=== PATIENT | male | born 1970 | race Caucasian/White ===

== ENCOUNTER 2019-09-01 18:30 | Emergency (ER) | payer MEDICAID ==
[~2019-09-01] VITALS: Ht 172.7 cm; Wt 88.6 kg
[~2019-09-01 18:30] MED LIST: AZIT250T PO; HYDR-4383 PO
[2019-09-01 19:23] LABS: BASOPHILS % (AUTO) 0.4 % (0-1); EOSINOPHILS # (AUTO) 0.2 X10'3 (0-0.9); EOSINOPHILS % (AUTO) 1.7 % (0-6); HEMATOCRIT 44.1 % (42.0-52.0); HEMOGLOBIN 15.3 g/dl (14.0-17.9); LYMPHOCYTES % (AUTO) 18.7 % (21-51); MEAN CORPUSCULAR HGB CONC 34.6 g/dL (33.0-36.5); MEAN CORPUSCULAR VOLUME 92.4 FL (78-98); MEAN PLATELET VOLUME 7.3 FL (7.4-10.4); MONOCYTES # (AUTO) 1.2 X10'3 (0-0.9); MONOCYTES % (AUTO) 10.9 % (2-12); NEUTROPHILS # (AUTO) 7.3 X10'3 (1.8-7.7); NEUTROPHILS % (AUTO) 68.3 % (42-75); PLATELET COUNT 310 X10'3 (140-440); RED BLOOD COUNT 4.78 X10'6 (4.70-6.10); RED CELL DISTRIBUTION WIDTH 13.3 % (11.5-14.5); WHITE BLOOD COUNT 10.7 X10'3 (4.5-11.0)
[2019-09-01 19:38] LABS: ALANINE AMINOTRANSFERASE 46 U/L (12-78); ALBUMIN/GLOBULIN RATIO 0.9 (1.1-1.5); ALKALINE PHOSPHATASE 70 IU/L (46-116); ANION GAP 10 (8-16); ASPARTATE AMINO TRANSFERASE 41 U/L (10-37); BILIRUBIN,TOTAL 0.4 MG/DL (0.1-1.0); BLOOD UREA NITROGEN 19 MG/DL (7-18); BUN/CREATININE RATIO 18.8 (5.4-32.0); CHLORIDE 105 MMOL/L (99-107); CREATININE 1.01 MG/DL (0.60-1.10); GLUCOSE 90 MG/DL (70-104); POTASSIUM 3.8 MMOL/L (3.5-5.1); SODIUM 140 MMOL/L (135-145); TOTAL CARBON DIOXIDE 24.6 MMOL/L (24-32); TOTAL PROTEIN 8.4 G/DL (6.4-8.2); eGFR 78 ML/MIN
[2019-09-01] MEDS ORDERED: methylPREDNISolone sod succ 125mg/2ml vial IV ONE (20:20)
[2019-09-01] MEDS ORDERED: normal saline 1000ML IV soln IVB ONE (20:20)
[2019-09-01] MEDS ORDERED: ipratropium/albuterol 3ml nebule NEB ONE (20:20)
[2019-09-01] MEDS ORDERED: CefTRIAXone 2gm/D5W 50ml 50 ML IV ONE (20:20)
[2019-09-01] MEDS ORDERED: BENZ-16 PO (20:21)
[2019-09-01] MEDS ORDERED: ALBU6.7H9 INH (20:21)
[2019-09-01] MEDS ORDERED: AMOX-422 PO (20:21)
[2019-09-01] MEDS ORDERED: PRED20TA PO (20:21)
[2019-09-01 21:30] VITALS: BP 149/90
== END 2019-09-01 21:31 | disposition home or self-care (01) ==
LOC: ER 18:31
DX: J32.9 Chronic sinusitis, unspecified (principal); J06.9 Acute upper respiratory infection, unspecified; G89.29 Other chronic pain; F17.200 Nicotine dependence, unspecified, uncomplicated; Z86.73 Personal history of transient ischemic attack (TIA), and cerebral infarction without residual deficits; Z79.899 Other long term (current) drug therapy
CPT/HCPCS: 36415; 71045; 80053; 83605; 85025; 87040; 93005; 94640; 94760; 96365; 96375; 99284; J0696; J2930; J7030

== ENCOUNTER 2020-03-09 05:27 | Emergency (ER) | payer MEDICAID ==
[~2020-03-09] VITALS: Ht 172.7 cm; Wt 90.0 kg
[~2020-03-09 05:27] MED LIST changes: +ALBU6.7H9 INH
[2020-03-09 05:29] VITALS: BP 151/94
== END 2020-03-09 06:33 | disposition home or self-care (01) ==
LOC: ER 05:28
DX: S70.02XA Contusion of left hip, initial encounter (principal); S70.12XA Contusion of left thigh, initial encounter; G89.29 Other chronic pain; F17.200 Nicotine dependence, unspecified, uncomplicated; Z86.73 Personal history of transient ischemic attack (TIA), and cerebral infarction without residual deficits; Z72.89 Other problems related to lifestyle; Z79.899 Other long term (current) drug therapy; V29.49XA Motorcycle driver injured in collision with other motor vehicles in traffic accident, initial encounter; Y93.89 Activity, other specified; Y92.488 Other paved roadways as the place of occurrence of the external cause; Y99.8 Other external cause status
CPT/HCPCS: 73502; 99283

== ENCOUNTER 2020-06-23 18:33 | Emergency (ER) | payer MEDICAID | END 2020-06-23 19:31 | disposition left against medical advice (07) | LOC: ER 18:34 | DX: S99.919A Unspecified injury of unspecified ankle, initial encounter (principal); Z53.21 Procedure and treatment not carried out due to patient leaving prior to being seen by health care provider; X58.XXXA Exposure to other specified factors, initial encounter; Y92.89 Other specified places as the place of occurrence of the external cause; Y93.89 Activity, other specified; Y99.8 Other external cause status ==

== ENCOUNTER 2022-07-15 08:29 | Emergency (ER) | payer MEDICAID ==
[~2022-07-15] VITALS: Ht 172.7 cm; Wt 90.9 kg
[2022-07-15 09:28] LABS: BASOPHILS # (AUTO) 0.1 X10'3 (0-0.2); BASOPHILS % (AUTO) 1.4 % (0-1); EOSINOPHILS # (AUTO) 0.1 X10'3 (0-0.9); HEMATOCRIT 47.6 % (42.0-52.0); HEMOGLOBIN 16.1 g/dl (14.0-17.9); LYMPHOCYTES # (AUTO) 1.9 X10'3 (1.1-4.8); LYMPHOCYTES % (AUTO) 28.7 % (21-51); MEAN CORPUSCULAR HEMOGLOBIN 31.3 PG (27.0-31.0); MEAN CORPUSCULAR HGB CONC 33.8 g/dL (33.0-36.5); MEAN CORPUSCULAR VOLUME 92.5 FL (78-98); MEAN PLATELET VOLUME 7.6 FL (7.4-10.4); MONOCYTES # (AUTO) 0.6 X10'3 (0-0.9); NEUTROPHILS # (AUTO) 3.8 X10'3 (1.8-7.7); NEUTROPHILS % (AUTO) 58.9 % (42-75); PLATELET COUNT 307 X10'3 (140-440); RED BLOOD COUNT 5.14 X10'6 (4.70-6.10); RED CELL DISTRIBUTION WIDTH 13.8 % (11.5-14.5); WHITE BLOOD COUNT 6.5 X10'3 (4.5-11.0)
[2022-07-15 09:33] LABS: APTT 32 SECONDS (22-32)
[2022-07-15 09:36] LABS: ALANINE AMINOTRANSFERASE 49 U/L (12-78); ALBUMIN 4.1 G/DL (3.4-5.0); ALBUMIN/GLOBULIN RATIO 1.1 (1.1-1.5); ALKALINE PHOSPHATASE 53 IU/L (46-116); ANION GAP 10 (8-16); ASPARTATE AMINO TRANSFERASE 22 U/L (10-37); BILIRUBIN,TOTAL 0.7 MG/DL (0.1-1.0); BLOOD UREA NITROGEN 22 MG/DL (7-18); CALCIUM 8.8 MG/DL (8.5-10.1); CHLORIDE 103 MMOL/L (99-107); GLUCOSE 113 MG/DL (70-104); POTASSIUM 4.2 MMOL/L (3.5-5.1); SODIUM 136 MMOL/L (135-145); TOTAL CARBON DIOXIDE 23.3 MMOL/L (24-32); eGFR 78 ML/MIN
[2022-07-15] MEDS ORDERED: iohexol 350MG/ML 100ml bottle IV ONE (12:06)
[2022-07-15] MEDS ORDERED: LOSA25TA41 PO (13:53)
[2022-07-15 14:20] VITALS: BP 175/103
== END 2022-07-15 14:08 | disposition home or self-care (01) ==
LOC: ER 08:30
DX: R51.9 Headache, unspecified (principal); I10 Essential (primary) hypertension; G89.29 Other chronic pain
CPT/HCPCS: 36415; 70496; 70498; 80053; 85025; 85610; 85730; 99285; J3490; Q9967

== ENCOUNTER 2023-01-17 13:41 | Inpatient (IN) | payer MEDICAID ==
[~2023-01-17] VITALS: Ht 172.7 cm; Wt 86.4 kg
[~2023-01-17 13:41] MED LIST changes: +ALBU6.7H14 INH; -ALBU6.7H9 INH; +LOSA25TA41 PO
[2023-01-17] MEDS ORDERED: iohexol 350MG/ML 100ml bottle IV ONE (14:05)
[2023-01-17 14:49] LABS: BASOPHILS # (AUTO) 0.1 X10'3 (0-0.2); BASOPHILS % (AUTO) 0.6 % (0-1); EOSINOPHILS # (AUTO) 0.1 X10'3 (0-0.9); EOSINOPHILS % (AUTO) 0.7 % (0-6); HEMATOCRIT 42.6 % (42.0-52.0); HEMOGLOBIN 14.3 g/dl (14.0-17.9); LYMPHOCYTES # (AUTO) 1.6 X10'3 (1.1-4.8); LYMPHOCYTES % (AUTO) 17.4 % (21-51); MEAN CORPUSCULAR HEMOGLOBIN 31.7 PG (27.0-31.0); MEAN CORPUSCULAR HGB CONC 33.6 g/dL (33.0-36.5); MEAN CORPUSCULAR VOLUME 94.2 FL (78-98); MEAN PLATELET VOLUME 7.7 FL (7.4-10.4); MONOCYTES # (AUTO) 0.5 X10'3 (0-0.9); MONOCYTES % (AUTO) 5.8 % (2-12); NEUTROPHILS # (AUTO) 7.1 X10'3 (1.8-7.7); NEUTROPHILS % (AUTO) 75.5 % (42-75); PLATELET COUNT 288 X10'3 (140-440); RED BLOOD COUNT 4.53 X10'6 (4.70-6.10); RED CELL DISTRIBUTION WIDTH 13.4 % (11.5-14.5); WHITE BLOOD COUNT 9.4 X10'3 (4.5-11.0)
[2023-01-17] MEDS ORDERED: aspirin 81mg tab.chew PO ONE (14:50)
--- NOTE | 2023-01-17 14:51 | NUR ---
Success A new connect request was successfully created for: LYMANJASON : 1970 ConnectID: [id number] REASON: Code Stroke TLKW 4.5 to 24 hours ACUITY: Acuity Level 2 SUBMITTED: 01/17/2023 14:51 PST
--- NOTE | 2023-01-17 14:52 | NUR ---
blood sugar 110 mg/dl . pt back from ct. ekg completed. vss. Addendum: 01/17/23 at 1453 by SYD tele doc on and talking to pt.
[2023-01-17 15:01] LABS: APTT 30 SECONDS (22-32)
[2023-01-17 15:02] LABS: ALANINE AMINOTRANSFERASE 27 U/L (12-78); ALBUMIN 3.7 G/DL (3.4-5.0); ALBUMIN/GLOBULIN RATIO 1.2 (1.1-1.5); ALKALINE PHOSPHATASE 57 IU/L (46-116); ANION GAP 8 (8-16); ASPARTATE AMINO TRANSFERASE 16 U/L (10-37); BILIRUBIN,TOTAL 0.2 MG/DL (0.1-1.0); BLOOD UREA NITROGEN 23 MG/DL (7-18); BUN/CREATININE RATIO 25.6 (5.4-32.0); CALCIUM 8.8 MG/DL (8.5-10.1); CHLORIDE 106 MMOL/L (99-107); GLUCOSE 113 MG/DL (70-104); SODIUM 139 MMOL/L (135-145); TOTAL CARBON DIOXIDE 25.5 MMOL/L (24-32); TOTAL PROTEIN 6.9 G/DL (6.4-8.2); eGFR 88 ML/MIN
--- NOTE | 2023-01-17 15:14 | NUR ---
pt passed swallow eval at approx 1509. no s/s aspiration
[2023-01-17] MEDS ORDERED: BACL10TA14 (15:35)
[2023-01-17] MEDS ORDERED: DOBUTamine-DoBUTrex 500mg/D5W 250 ML IV SCH (16:20)
[2023-01-17] MEDS ORDERED: magnesium Cl slow-release 64mg tablet PO PRN (16:35)
[2023-01-17] MEDS ORDERED: normal saline 1000ml 1,000 ML IV SCH (16:35)
[2023-01-17] MEDS ORDERED: HYDROcodone/acetaminophen 5mg/325mg tablet PO PRN (16:35)
[2023-01-17] MEDS ORDERED: morphine 2 MG/ML inj. syringe IV PRN (16:35)
[2023-01-17] MEDS ORDERED: magnesium 4gm in 100ml NS 100 ML IV PRN (16:35)
[2023-01-17] MEDS ORDERED: acetaminophen 325mg tablet PO PRN ×2 (16:35)
[2023-01-17] MEDS ORDERED: potassium Cl 40MEQ/1/2NS 520ml 520 ML IV PRN (16:35)
[2023-01-17] MEDS ORDERED: potassium Cl 20 mEq SR tablet PO PRN ×2 (16:35)
[2023-01-17] MEDS ORDERED: ondansetron/PF 4mg/2ml inj IV PRN (16:35)
[2023-01-17] MEDS ORDERED: BACL10TA2 PO (17:05)
[2023-01-17] MEDS ORDERED: LOSA25TA41 PO (17:05)
[2023-01-17] MEDS ORDERED: GABA300C PO (17:06)
[2023-01-17] MEDS ORDERED: MELO-102 PO (17:06)
[2023-01-17] MEDS ORDERED: IBUP-1984 PO (17:07)
[2023-01-17] MEDS: K and/or MAG REPLACEMENT MC SCH (20:00)
[2023-01-17 21:00] VITALS: BP 151/81
[2023-01-17] MEDS: heparin, porcine 5000 units/ml vial SQ SCH (21:59)
--- NOTE | 2023-01-17 23:31 | NUR ---
Student documentation: I have reviewed interventions, assessments performed and documented by Kassy SILVA [facility], [place].
[2023-01-18 02:00] VITALS: BP 142/81
[2023-01-18 04:42] LABS: BASOPHILS % (AUTO) 0.3 % (0-1); EOSINOPHILS # (AUTO) 0.2 X10'3 (0-0.9); EOSINOPHILS % (AUTO) 2.7 % (0-6); HEMATOCRIT 41.4 % (42.0-52.0); LYMPHOCYTES # (AUTO) 2.7 X10'3 (1.1-4.8); LYMPHOCYTES % (AUTO) 32.3 % (21-51); MEAN CORPUSCULAR HEMOGLOBIN 31.9 PG (27.0-31.0); MEAN CORPUSCULAR HGB CONC 33.8 g/dL (33.0-36.5); MEAN CORPUSCULAR VOLUME 94.3 FL (78-98); MEAN PLATELET VOLUME 7.9 FL (7.4-10.4); MONOCYTES # (AUTO) 0.7 X10'3 (0-0.9); MONOCYTES % (AUTO) 7.8 % (2-12); NEUTROPHILS # (AUTO) 4.8 X10'3 (1.8-7.7); NEUTROPHILS % (AUTO) 56.9 % (42-75); PLATELET COUNT 277 X10'3 (140-440); RED BLOOD COUNT 4.39 X10'6 (4.70-6.10); RED CELL DISTRIBUTION WIDTH 13.7 % (11.5-14.5); WHITE BLOOD COUNT 8.4 X10'3 (4.5-11.0)
[2023-01-18 04:59] LABS: ALANINE AMINOTRANSFERASE 25 U/L (12-78); ALBUMIN 3.6 G/DL (3.4-5.0); ALBUMIN/GLOBULIN RATIO 1.2 (1.1-1.5); ALKALINE PHOSPHATASE 52 IU/L (46-116); ANION GAP 10 (8-16); ASPARTATE AMINO TRANSFERASE 16 U/L (10-37); BILIRUBIN,TOTAL 0.5 MG/DL (0.1-1.0); BLOOD UREA NITROGEN 24 MG/DL (7-18); BUN/CREATININE RATIO 28.2 (5.4-32.0); CALCIUM 8.7 MG/DL (8.5-10.1); CHLORIDE 106 MMOL/L (99-107); CREATININE 0.85 MG/DL (0.60-1.10); GLUCOSE 92 MG/DL (70-104); POTASSIUM 3.9 MMOL/L (3.5-5.1); SODIUM 141 MMOL/L (135-145); TOTAL CARBON DIOXIDE 24.6 MMOL/L (24-32); TOTAL PROTEIN 6.7 G/DL (6.4-8.2); eGFR > 90 ML/MIN
[2023-01-18 05:24] LABS: CHOL/HDL RATIO 4.3 (0.00-4.99); CHOLESTEROL 221 MG/DL (0-200); HDL CHOLESTEROL 52 MG/DL (35-60); LDL CHOLESTEROL 133 MG/DL (50-100); TRIGLYCERIDES 247 MG/DL (20-135)
--- NOTE | 2023-01-18 06:29 | NUR ---
Problems reprioritized. Patient report given, questions answered & plan of care reviewed with SUSI WILSON.
[2023-01-18 08:00] VITALS: BP 126/75
[2023-01-18] MEDS: K and/or MAG REPLACEMENT MC SCH (08:00)
[2023-01-18] MEDS ORDERED: aspirin 81mg, enteric-coated 1 TAB TABLET.DR PO SCH (08:00)
[2023-01-18] MEDS: heparin, porcine 5000 units/ml vial SQ SCH (08:00)
--- NOTE | 2023-01-18 10:24 | NUR ---
PAGER ID: [phone] MESSAGE: [id number] Isidro, B: patient would like to discharge home. all symptoms have resolved. thanks! regis [phone]
[2023-01-18] MEDS ORDERED: ATOR20TA66 PO (10:48)
[2023-01-18] MEDS ORDERED: BACL10TA2 PO (10:48)
[2023-01-18] MEDS ORDERED: OMEP20CA15 PO (10:48)
[2023-01-18] MEDS ORDERED: ASPI-1071 PO (10:48)
--- NOTE | 2023-01-18 11:32 | NUR ---
Patient stable and appropriate for discharge home. IV and nursing technician removed. All belongings gathered from room. New RX called in to [facility] pharmacy in [place]. All discharge instructions and education given and reviewed with patient, all questions answered.
== END 2023-01-18 11:28 | disposition home or self-care (01) | DRG 47 ==
LOC: ER 13:41 → ED HOLD 16:40 → UNDOADMIN 16:49 → ED HOLD 16:49 → SUR 3N 21:00 → ED HOLD 21:00
PROVIDERS: ADMIT Internal Medicine; ATTEND Internal Medicine
PROC: B3251ZZ Computerized Tomography (CT Scan) of Bilateral Common Carotid Arteries using Low Osmolar Contrast (ICD-10-PCS; principal; 2023-01-17)
PROC: B32G1ZZ Computerized Tomography (CT Scan) of Bilateral Vertebral Arteries using Low Osmolar Contrast (ICD-10-PCS; 2023-01-17)
PROC: B32R1ZZ Computerized Tomography (CT Scan) of Intracranial Arteries using Low Osmolar Contrast (ICD-10-PCS; 2023-01-17)
PROC: B3281ZZ Computerized Tomography (CT Scan) of Bilateral Internal Carotid Arteries using Low Osmolar Contrast (ICD-10-PCS; 2023-01-17)
DX: G45.9 Transient cerebral ischemic attack, unspecified (principal); E78.00 Pure hypercholesterolemia, unspecified; E78.5 Hyperlipidemia, unspecified; G51.0 Bell's palsy; R51.9 Headache, unspecified; G89.29 Other chronic pain; I10 Essential (primary) hypertension; K21.00 Gastro-esophageal reflux disease with esophagitis, without bleeding; R13.10 Dysphagia, unspecified; Z79.82 Long term (current) use of aspirin; Z86.73 Personal history of transient ischemic attack (TIA), and cerebral infarction without residual deficits; Z79.899 Other long term (current) drug therapy
CPT/HCPCS: 36415; 70450; 70496; 70498; 70544; 70551; 71045; 80053; 80061; 82948; 85025; 85610; 85651; 85730; 87081; 93005; 97161; 97530; 99285; A6258; G0378; J1644; J3490; J7030; Q9967

== ENCOUNTER 2023-06-21 18:12 | Inpatient (IN) | payer MEDICAID, SELFPAY ==
[~2023-06-21] VITALS: Ht 172.7 cm; Wt 90.0 kg
[~2023-06-21 18:12] MED LIST changes: -ALBU6.7H14 INH; +ASPI-1071 PO; +ATOR20TA66 PO; -AZIT250T PO; +BACL10TA2 PO; +GABA300C PO; -HYDR-4383 PO; +OMEP20CA15 PO
--- NOTE | 2023-06-21 18:30 | NUR ---
at bedside completing ultrasound assessment.
[2023-06-21] MEDS ORDERED: ondansetron/PF 4mg/2ml inj IV ONE (18:40)
[2023-06-21] MEDS ORDERED: morphine 10mg/ml inj. IV ONE (18:40)
[2023-06-21] MEDS ORDERED: iohexol 350MG/ML 100ml bottle IV ONE (18:46)
[2023-06-21] MEDS ORDERED: iohexol 300 MG/1 ML 50ml polymer ONE ×2 (18:51→22:21)
[2023-06-21 19:02] LABS: BASOPHILS % (AUTO) 0.2 % (0-1); EOSINOPHILS # (AUTO) 0.1 X10'3 (0-0.9); EOSINOPHILS % (AUTO) 0.6 % (0-6); HEMATOCRIT 42.4 % (42.0-52.0); HEMOGLOBIN 14.1 g/dl (14.0-17.9); LYMPHOCYTES # (AUTO) 3.5 X10'3 (1.1-4.8); LYMPHOCYTES % (AUTO) 18.3 % (21-51); MEAN CORPUSCULAR HEMOGLOBIN 31.4 PG (27.0-31.0); MEAN CORPUSCULAR HGB CONC 33.3 g/dL (33.0-36.5); MEAN CORPUSCULAR VOLUME 94.4 FL (78-98); MEAN PLATELET VOLUME 8.1 FL (7.4-10.4); MONOCYTES # (AUTO) 1.3 X10'3 (0-0.9); MONOCYTES % (AUTO) 6.6 % (2-12); NEUTROPHILS # (AUTO) 14.3 X10'3 (1.8-7.7); NEUTROPHILS % (AUTO) 74.3 % (42-75); PLATELET COUNT 287 X10'3 (140-440); RED CELL DISTRIBUTION WIDTH 13.4 % (11.5-14.5); WHITE BLOOD COUNT 19.3 X10'3 (4.5-11.0)
--- NOTE | 2023-06-21 19:04 | NUR ---
LATE NOTE FOR [address] SCAN
[2023-06-21 19:16] LABS: APTT 26 SECONDS (22-32)
[2023-06-21 19:19] LABS: ALANINE AMINOTRANSFERASE 43 U/L (12-78); ALBUMIN 4.2 G/DL (3.4-5.0); ALBUMIN/GLOBULIN RATIO 1.2 (1.1-1.5); ALKALINE PHOSPHATASE 55 IU/L (46-116); ANION GAP 18 (8-16); ASPARTATE AMINO TRANSFERASE 37 U/L (10-37); BILIRUBIN,TOTAL 0.4 MG/DL (0.1-1.0); BLOOD UREA NITROGEN 21 MG/DL (7-18); BUN/CREATININE RATIO 16.8 (10.0-20.0); CALCIUM 9.5 MG/DL (8.5-10.1); CHLORIDE 103 MMOL/L (99-107); CREATININE 1.25 MG/DL (0.60-1.10); GLUCOSE 112 MG/DL (70-104); POTASSIUM 3.7 MMOL/L (3.5-5.1); SODIUM 141 MMOL/L (135-145); TOTAL CARBON DIOXIDE 20.5 MMOL/L (24-32); TOTAL PROTEIN 7.7 G/DL (6.4-8.2); eGFR 60 ML/MIN
--- NOTE | 2023-06-21 19:21 | NUR ---
PT BACK FROM CT COMPALINING OF SEVERE PAIN UNABLE TO FEEL LIGHT TOUCH TO LEFT FOOT BUT ABLE TO FEEL SHARP, DR HARRIS NOTIFIED AND TO [facility] FOR RE-EVALUATION.
[2023-06-21] MEDS ORDERED: HYDROmorphone 1 mg/ml syringe IV ONE ×2 (19:25→20:10)
[2023-06-21] MEDS: normal saline 1000ml 1,000 ML IV SCH (20:24)
[2023-06-21] MEDS: ceFAZolin/D5W- 1GM premix 50 ML IV SCH (20:29)
[2023-06-21] MEDS ORDERED: heparin 10,000 units/1 ML INJ ONE (20:49)
[2023-06-21] MEDS ORDERED: midazolam 1 mg/ML 2ml injection ONE (21:05)
[2023-06-21] MEDS ORDERED: propofol inj 20 ML IV ONE (21:06)
[2023-06-21] MEDS ORDERED: fentaNYL /PF 50mcg/ml 5ml ampule ONE (21:06)
[2023-06-21] MEDS ORDERED: sevoflurane 250ml liquid IH ONE (21:43)
[2023-06-21] MEDS ORDERED: glycopyrrolate 0.2mg/ml inj ONE (21:43)
[2023-06-21] MEDS ORDERED: ondansetron/PF 4mg/2ml inj ONE (21:43)
[2023-06-21] MEDS ORDERED: neostigmine methylsulfate 1 MG/ML 10ml vial ONE (21:43)
[2023-06-21] MEDS ORDERED: NORepinephrine 8 MG in NS 250 ML BAG (32 mcg/ml) IV ONE (21:43)
[2023-06-21] MEDS ORDERED: rocuronium 10mg/ml inj IV ONE ×2 (21:43→22:24)
[2023-06-21] MEDS ORDERED: ceFAZolin 1000mg inj ONE ×2 (22:15)
[2023-06-21] MEDS ORDERED: dexamethasone sod phosphate 4mg/ml inj. ONE (22:24)
[2023-06-21] MEDS ORDERED: heparin 1,000unit/ml 10ml vial 10 ML ONE (22:58)
[2023-06-21] MEDS ORDERED: vancomycin 1,000mg inj ONE (23:20)
[2023-06-22] VITALS (28 sets, daily range): BP systolic 101–153; BP diastolic 45–88; PULSE 93–115; RESP 13–41; O2SAT 88–99
[2023-06-22] MEDS ORDERED: naloxone 0.4 mg/ml inj IV PRN (01:05)
[2023-06-22] MEDS ORDERED: ringers solution, lacted 1,000 ML IV SCH (01:20)
[2023-06-22] MEDS ORDERED: ondansetron/PF 4mg/2ml inj IV PRN (01:20)
[2023-06-22] MEDS ORDERED: meperidine/PF 25mg/ml syringe IV PRN ×3 (01:20)
[2023-06-22] MEDS ORDERED: morphine 4 MG/ML inj SYRINge IV PRN (01:20)
[2023-06-22] MEDS ORDERED: morphine 2 MG/ML inj. syringe IV PRN (01:20)
[2023-06-22] MEDS ORDERED: proCHLORperazine 10 MG/2 ml inj IV PRN (01:20)
[2023-06-22 01:49] LABS: APTT > 139 SECONDS (22-32)
[2023-06-22 02:22] LABS: BASOPHILS % (AUTO) 0.2 % (0-1); EOSINOPHILS % (AUTO) 0 % (0-6); HEMATOCRIT 28.5 % (42.0-52.0); HEMOGLOBIN 9.5 g/dl (14.0-17.9); LYMPHOCYTES # (AUTO) 1.1 X10'3 (1.1-4.8); LYMPHOCYTES % (AUTO) 5.3 % (21-51); MEAN CORPUSCULAR HEMOGLOBIN 31.8 PG (27.0-31.0); MEAN CORPUSCULAR HGB CONC 33.5 g/dL (33.0-36.5); MEAN CORPUSCULAR VOLUME 94.9 FL (78-98); MEAN PLATELET VOLUME 8.3 FL (7.4-10.4); MONOCYTES # (AUTO) 1.5 X10'3 (0-0.9); MONOCYTES % (AUTO) 7.5 % (2-12); NEUTROPHILS # (AUTO) 17.3 X10'3 (1.8-7.7); PLATELET COUNT 231 X10'3 (140-440); RED CELL DISTRIBUTION WIDTH 13.4 % (11.5-14.5); WHITE BLOOD COUNT 19.9 X10'3 (4.5-11.0)
[2023-06-22 02:30] LABS: ALANINE AMINOTRANSFERASE 29 U/L (12-78); ALBUMIN 3.1 G/DL (3.4-5.0); ALBUMIN/GLOBULIN RATIO 1.2 (1.1-1.5); ALKALINE PHOSPHATASE 37 IU/L (46-116); ANION GAP 13 (8-16); ASPARTATE AMINO TRANSFERASE 32 U/L (10-37); BILIRUBIN,TOTAL 0.6 MG/DL (0.1-1.0); BLOOD UREA NITROGEN 23 MG/DL (7-18); BUN/CREATININE RATIO 18.1 (10.0-20.0); CALCIUM 7.8 MG/DL (8.5-10.1); CHLORIDE 108 MMOL/L (99-107); CREATININE 1.27 MG/DL (0.60-1.10); GLUCOSE 199 MG/DL (70-104); MAGNESIUM 1.8 MG/DL (1.5-2.4); PHOSPHORUS 4.7 MG/DL (2.3-4.5); POTASSIUM 4.9 MMOL/L (3.5-5.1); SODIUM 141 MMOL/L (135-145); TOTAL PROTEIN 5.6 G/DL (6.4-8.2); eGFR 59 ML/MIN
[2023-06-22] MEDS: HYDROmorphone inj. 0.5 MG/0.5 ML DISP.SYRIN IV PRN ×5 (02:33→20:08)
[2023-06-22] MEDS: normal saline 1000ml 1,000 ML IV SCH ×3 (02:34→12:21)
[2023-06-22] MEDS: ceFAZolin/D5W- 1GM premix 50 ML IV SCH (04:27)
[2023-06-22] MEDS: HYDROcodone/acetaminophen 10/325mg tab PO PRN ×5 (05:56→23:16)
[2023-06-22] MEDS: vancomycin/NS 1 GM ADD-VANTAGE 250 ML IV SCH ×2 (07:48→20:01)
--- NOTE | 2023-06-22 08:19 | NUR ---
Left groin Wound Vac constantly alarming "leak"since noc shift. WOC team here to assess.
[2023-06-22] MEDS ORDERED: hydrALAZINE 20mg/ml inj. IV PRN (10:15)
--- NOTE | 2023-06-22 10:16 | NUR ---
RN called Dr. Gilman for HTN. Orders rec'd.
--- NOTE | 2023-06-22 10:30 | NUR ---
Dr. Gilman in to see pt.
[2023-06-22] MEDS: losartan 25mg tablet PO SCH (10:32)
--- NOTE | 2023-06-22 10:36 | NUR ---
WOUND VAC EDUCATION PROVIDED BY WOUND CARE 1. Patient instructed to call the Wound Center or their Home Health Agency immediately if: * They notice a change in the color or amount of the fluid in the canister. * Their wound looks more red than usual or has a foul smell. * The skin around their wound looks reddened or irritated. * The dressing feels loose or appears to be loose. * They experience any increase or changes in their pain. * The alarm will not turn off. 2. Patient instructed that they should not be disconnected from suction for more than 2 hours at a time. * If they are not able to get the suction back on, they need to remove the dressing and take all of the foam out of the wound. * Then moisten sterile gauze with normal saline and place on/in the wound. * Change the dressing once a day until arrangements have been made to replace the wound vac dressing. 3. Patient instructed to turn the wound vac machine OFF and call 911 or go to the ED immediately if their canister fills rapidly with blood. 4. If any of these occur while in the hospital tell a nurse immediately. Addendum: 06/22/23 at 1036 by Sony Garzon RN Amended: Links added.
[2023-06-22] MEDS ORDERED: naphazoline/pheniramine eye 1 DROP BOTTLE EACHEYE PRN (10:50)
--- NOTE | 2023-06-22 11:26 | NUR ---
Pt/ c/o "feels like something is in my right eye." Dr. Gilman assessed eye. Eye gtts ordered and administered.
[2023-06-22] MEDS ORDERED: BACL10TA PO (12:51)
--- NOTE | 2023-06-22 13:35 | NUR ---
Incentive Spirometer provided and pt. instructed on use. Encourage Q1h use.
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
[2023-06-22] MEDS: ondansetron/PF 4mg/2ml inj IV PRN (16:26)
[2023-06-23] VITALS (31 sets, daily range): BP systolic 99–137; BP diastolic 45–109; PULSE 93–114; RESP 11–22; TEMP 98.6–99; O2SAT 94–100
[2023-06-23] MEDS: HYDROmorphone inj. 0.5 MG/0.5 ML DISP.SYRIN IV PRN ×4 (01:52→17:23)
[2023-06-23] MEDS: HYDROcodone/acetaminophen 10/325mg tab PO PRN ×4 (04:25→20:35)
[2023-06-23 06:21] LABS: BASOPHILS % (AUTO) 0 % (0-1); EOSINOPHILS % (AUTO) 0 % (0-6); LYMPHOCYTES # (AUTO) 1.6 X10'3 (1.1-4.8); LYMPHOCYTES % (AUTO) 10.6 % (21-51); MEAN CORPUSCULAR HEMOGLOBIN 32.4 PG (27.0-31.0); MEAN CORPUSCULAR HGB CONC 33.9 g/dL (33.0-36.5); MEAN CORPUSCULAR VOLUME 95.5 FL (78-98); MEAN PLATELET VOLUME 8.7 FL (7.4-10.4); MONOCYTES % (AUTO) 13.2 % (2-12); NEUTROPHILS # (AUTO) 11.6 X10'3 (1.8-7.7); NEUTROPHILS % (AUTO) 76.2 % (42-75); PLATELET COUNT 171 X10'3 (140-440); RED BLOOD COUNT 2.11 X10'6 (4.70-6.10); RED CELL DISTRIBUTION WIDTH 13.7 % (11.5-14.5); WHITE BLOOD COUNT 15.3 X10'3 (4.5-11.0)
[2023-06-23 06:24] LABS: ALBUMIN 2.8 G/DL (3.4-5.0); BLOOD UREA NITROGEN 46 MG/DL (7-18); BUN/CREATININE RATIO 19.7 (10.0-20.0); CALCIUM 7.6 MG/DL (8.5-10.1); CHLORIDE 98 MMOL/L (99-107); CREATININE 2.34 MG/DL (0.60-1.10); GLUCOSE 136 MG/DL (70-104); POTASSIUM 4.8 MMOL/L (3.5-5.1); TOTAL CARBON DIOXIDE 22.4 MMOL/L (24-32); eGFR 29 ML/MIN
[2023-06-23 06:33] LABS: ANION GAP 11 (8-16)
[2023-06-23 06:34] LABS: SODIUM 131 MMOL/L (135-145)
[2023-06-23 06:45] LABS: HEMATOCRIT 20.1 % (42.0-52.0); HEMOGLOBIN 6.8 g/dl (14.0-17.9)
[2023-06-23] MEDS: vancomycin/NS 1 GM ADD-VANTAGE 250 ML IV SCH ×2 (07:04→20:56)
--- NOTE | 2023-06-23 07:33 | NUR ---
Critical Lab result: H/H 6.07/[address] Gilman, received acknowledgment of notification from
[2023-06-23] MEDS: losartan 25mg tablet PO SCH (08:36)
--- NOTE | 2023-06-23 08:58 | NUR ---
Noted: Hiccups with eating and swallowing this is new was not happening prior to this hospitalization, per Patient. Nursing will alert MD.
[2023-06-23] MEDS: HYDROmorphone 1 mg/ml syringe IV PRN ×2 (10:18→23:00)
[2023-06-23] MEDS: ondansetron/PF 4mg/2ml inj IV PRN (13:18)
[2023-06-23 14:07] LABS: MEAN CORPUSCULAR HEMOGLOBIN 31.8 PG (27.0-31.0); MEAN CORPUSCULAR HGB CONC 33.4 g/dL (33.0-36.5); MEAN CORPUSCULAR VOLUME 95.2 FL (78-98); MEAN PLATELET VOLUME 7.7 FL (7.4-10.4); PLATELET COUNT 170 X10'3 (140-440); RED BLOOD COUNT 2.01 X10'6 (4.70-6.10); RED CELL DISTRIBUTION WIDTH 13.2 % (11.5-14.5); WHITE BLOOD COUNT 15.6 X10'3 (4.5-11.0)
[2023-06-23 14:23] LABS: HEMATOCRIT 19.1 % (42.0-52.0); HEMOGLOBIN 6.4 g/dl (14.0-17.9)
--- NOTE | 2023-06-23 14:42 | NUR ---
PRESSURE ULCER EDUCATION: DEFINITION: A pressure ulcer is an area of skin that breaks down when you stay in one position too long. The constant pressure against the skin reduces the blood flow to that area and the affected tissue dies. CAUSES: "Being bedridden or in a wheelchair "Fragile skin "Having a chronic condition, such as diabetes or vascular disease "Inability to move certain parts of your body without assistance "Older age "Incontinence of urine or stool SYMPTOMS: "A reddened area that DOES NOT turn white when pressed on - this can be the beginning of a pressure ulcer "A blister, deep sore or a crater - these can be advanced pressure ulcers FIRST AID: "Relieve the pressure on this area "Keep the area clean and dry "Call your primary doctor if you see any of the above symptoms "DO NOT massage the area "DO NOT use a donut shaped or ring shaped pillow- these actually interfere with the blood flow and cause complications PREVENTION: "Check for pressure ulcers everyday "Change position at least every two hours to relieve pressure "Use items that help relieve pressure- pillows, sheepskin, foam padding, and powders. "Keep skin clean and dry "Eat healthy well balanced meals "Exercise daily IF YOU SEE ANY OF THESE SYMPTOMS WHILE IN THE HOSPITAL - TELL YOUR NURSE IMMEDIATELY. IF YOU SEE ANY OF THESE SYMPTOMS WHILE AT HOME OR HAVE ANY QUESTIONS OR CONCERNS ABOUT PRESSURE ULCERS - CALL YOUR PRIMARY DOCTOR IMMEDIATELY. Addendum: 06/23/23 at 1443 by Sony Garzon RN Amended: Links added.
--- NOTE | 2023-06-23 14:44 | NUR ---
Critical Lab result: H/H 6.4/19.[address] Gilman
[2023-06-23 14:48] LABS: CREATINE KINASE 12130 U/L (39-308)
[2023-06-23] MEDS ORDERED: ferrous gluconate 324mg tablet PO SCH (17:30)
[2023-06-23] MEDS: ferrous sulfate 325mg tablet PO SCH (17:30)
[2023-06-23] MEDS: ringers solution, lacted 1,000 ML IV SCH (18:04)
--- NOTE | 2023-06-23 18:57 | NUR ---
Discussion of Blood Transfusion needs, risks and of Pt. fears regarding blood safety, Pt has decided to receive a transfusion at this time / as a life preserving measure, He has discussed this with his adult children.
--- NOTE | 2023-06-23 19:06 | NUR ---
Patient in room CICU 2011. I have received report from Louisa (RECEIVER) and had the opportunity to ask questions and assume patient care.
[2023-06-23] MEDS ORDERED: VANCOMYCIN LEVEL IV ONE (19:30)
[2023-06-23] MEDS ORDERED: magnesium hydroxide 30ml (MOM) UD suspension PO ONE (20:00)
[2023-06-23] MEDS ORDERED: chlorproMAZINE 25mg/ml inj. IM ONE (20:00)
[2023-06-24] VITALS (21 sets, daily range): BP systolic 90–132; BP diastolic 49–71; PULSE 79–110; RESP 11–21; TEMP 97.9–98.5; O2SAT 93–99
[2023-06-24] MEDS: HYDROcodone/acetaminophen 10/325mg tab PO PRN ×6 (00:39→21:54)
[2023-06-24 02:52] LABS: BASOPHILS % (AUTO) 0.1 % (0-1); EOSINOPHILS % (AUTO) 0.1 % (0-6); HEMATOCRIT 24.8 % (42.0-52.0); HEMOGLOBIN 8.4 g/dl (14.0-17.9); LYMPHOCYTES # (AUTO) 1.7 X10'3 (1.1-4.8); LYMPHOCYTES % (AUTO) 15.4 % (21-51); MEAN CORPUSCULAR HEMOGLOBIN 30.5 PG (27.0-31.0); MEAN CORPUSCULAR HGB CONC 33.9 g/dL (33.0-36.5); MEAN CORPUSCULAR VOLUME 90.1 FL (78-98); MEAN PLATELET VOLUME 8.1 FL (7.4-10.4); MONOCYTES # (AUTO) 1.2 X10'3 (0-0.9); MONOCYTES % (AUTO) 11.3 % (2-12); NEUTROPHILS # (AUTO) 7.9 X10'3 (1.8-7.7); NEUTROPHILS % (AUTO) 73.1 % (42-75); PLATELET COUNT 146 X10'3 (140-440); RED BLOOD COUNT 2.75 X10'6 (4.70-6.10); RED CELL DISTRIBUTION WIDTH 16.5 % (11.5-14.5); WHITE BLOOD COUNT 10.8 X10'3 (4.5-11.0)
[2023-06-24 03:06] LABS: ALBUMIN 2.6 G/DL (3.4-5.0); ANION GAP 9 (8-16); BLOOD UREA NITROGEN 28 MG/DL (7-18); BUN/CREATININE RATIO 22.8 (10.0-20.0); CALCIUM 8.2 MG/DL (8.5-10.1); CHLORIDE 104 MMOL/L (99-107); CREATININE 1.23 MG/DL (0.60-1.10); GLUCOSE 117 MG/DL (70-104); POTASSIUM 4.1 MMOL/L (3.5-5.1); SODIUM 138 MMOL/L (135-145); TOTAL CARBON DIOXIDE 25.5 MMOL/L (24-32); eGFR 62 ML/MIN
[2023-06-24] MEDS: HYDROmorphone 1 mg/ml syringe IV PRN ×5 (03:26→19:58)
[2023-06-24] MEDS: ringers solution, lacted 1,000 ML IV SCH ×3 (03:32→13:50)
--- NOTE | 2023-06-24 06:19 | NUR ---
Problems reprioritized. Patient report given, questions answered & plan of care reviewed with
--- NOTE | 2023-06-24 06:24 | NUR ---
Received report from SUSI Gonzales.
[2023-06-24] MEDS: aspirin 81mg, enteric-coated 1 TAB TABLET.DR PO SCH (07:38)
[2023-06-24] MEDS: losartan 25mg tablet PO SCH (07:39)
[2023-06-24] MEDS: vancomycin/NS 1 GM ADD-VANTAGE 250 ML IV SCH ×2 (07:41→19:59)
[2023-06-24] MEDS: ferrous sulfate 325mg tablet PO SCH ×3 (08:30→17:30)
[2023-06-24 09:56] LABS: CREATINE KINASE 12161 U/L (39-308)
--- NOTE | 2023-06-24 12:16 | NUR ---
Reassessment: Pt continues on regular diet and overall eating poorly, documented with mostly 0% PO intake however with 25-50% PO intake of lunch 06/23 and 50% PO intake of breakfast this morning. Pt seen at bedside with family present. Pt states his appetite is improving and family is bringing in outside food. Despite documented 25% PO intake of protein only at dinner 06/23 pt reports consuming about 50% of the protein. Pt denies food preferences at this time. RD encouraged PO intake of food with emphasis on protein to assist with wound healing, pt verbalized understanding. Pt agreeable to Nuno shake BIDLD to assist with wound healing, d/w viscose cellar charge hand, pending physician approval in EMR prior to initiation. Pt denies food allergies or difficulty chewing/swallowing. No documented BM since admit and pt not receiving routine bowel care though documented to have received one time MoM 06/23. Pt agrees to prunes and prune juice with next meal to assist with a BM, d/w dietary. Pt provided with RD contact information and encouraged to reach out if needed. Will continue to follow closely. Recommendations: 1. Continue regular diet; encourage PO intake and allow outside food to optimize PO intake 2. [place] Nuno shake BIDLD to assist with wound healing, pending physician approval in EMR 3. Consider routine MVI, Vitamin C, and Zinc to assist with wound healing 4. Routine bowel care 5. Weekly scaled weights Addendum: 06/24/23 at [address] Amended: Links added.
[2023-06-24 12:31] LABS: CLARITY,URINE SLIGHTLY CLOUDY (Clear); COLOR,URINE YELLOW (Yellow); GLUCOSE, URINE NEGATIVE (Neg); KETONES,URINE NEGATIVE (Neg); LEUKOCYTE ESTERASE ,URINE NEGATIVE (Neg); NITRITES, URINE NEGATIVE (Neg); OCCULT BLOOD,URINE MODERATE (Neg); PROTEIN,URINE NEGATIVE (Neg); UROBILINOGEN,URINE 0.2 E.U/dL (0.2-1.0)
[2023-06-24 13:08] LABS: UA COLLECTION TYPE FOLEY CATH
[2023-06-24 13:10] LABS: COARSE GRANULAR CAST 0-3 /LPF (NEGATIVE); HYALINE CASTS 0-3 /LPF (NEGATIVE); MUCUS STRANDS MODERATE /LPF (Neg)
[2023-06-24 13:11] LABS: BACTERIA,URINE FEW /HPF (Neg); RBC,URINE 0-2 /HPF (0-2); SQUAMOUS EPITHELIAL CELL,UR FEW /LPF (FEW); WBC,URINE 0-4 /HPF (0-4)
--- NOTE | 2023-06-24 16:20 | NUR ---
attempted to call for report rn off the floor, awaiting call back
--- NOTE | 2023-06-24 18:10 | NUR ---
Patient was transferred to [facility] at approximately 1650.
[2023-06-25] MEDS: HYDROcodone/acetaminophen 10/325mg tab PO PRN ×5 (00:08→20:54)
[2023-06-25] MEDS: HYDROmorphone 1 mg/ml syringe IV PRN ×3 (03:16→23:18)
[2023-06-25 06:00] VITALS: BP 102/65; PULSE 102; RESP 18; TEMP 98; O2SAT 94
--- NOTE | 2023-06-25 06:29 | NUR ---
Problems reprioritized. Patient report given, questions answered & plan of care reviewed with SUSI Ortgea.
[2023-06-25 06:44] LABS: BASOPHILS % (AUTO) 0.2 % (0-1); EOSINOPHILS # (AUTO) 0.1 X10'3 (0-0.9); EOSINOPHILS % (AUTO) 0.9 % (0-6); HEMATOCRIT 24.3 % (42.0-52.0); HEMOGLOBIN 8.2 g/dl (14.0-17.9); LYMPHOCYTES # (AUTO) 2.1 X10'3 (1.1-4.8); LYMPHOCYTES % (AUTO) 18.1 % (21-51); MEAN CORPUSCULAR HEMOGLOBIN 30.5 PG (27.0-31.0); MEAN CORPUSCULAR HGB CONC 33.9 g/dL (33.0-36.5); MEAN CORPUSCULAR VOLUME 90.1 FL (78-98); MEAN PLATELET VOLUME 8.3 FL (7.4-10.4); MONOCYTES # (AUTO) 1.3 X10'3 (0-0.9); MONOCYTES % (AUTO) 11.1 % (2-12); NEUTROPHILS % (AUTO) 69.7 % (42-75); PLATELET COUNT 211 X10'3 (140-440); RED CELL DISTRIBUTION WIDTH 16.8 % (11.5-14.5); WHITE BLOOD COUNT 11.5 X10'3 (4.5-11.0)
--- NOTE | 2023-06-25 06:45 | NUR ---
Patient in room ORTHO 4020B. I have received report from SUSI GREGORY and had the opportunity to ask questions and assume patient care.
[2023-06-25 06:58] LABS: ALBUMIN 2.7 G/DL (3.4-5.0); ANION GAP 6 (8-16); BLOOD UREA NITROGEN 13 MG/DL (7-18); BUN/CREATININE RATIO 15.1 (10.0-20.0); CALCIUM 8.3 MG/DL (8.5-10.1); CHLORIDE 103 MMOL/L (99-107); CREATININE 0.86 MG/DL (0.60-1.10); GLUCOSE 101 MG/DL (70-104); POTASSIUM 4.1 MMOL/L (3.5-5.1); SODIUM 137 MMOL/L (135-145); TOTAL CARBON DIOXIDE 27.8 MMOL/L (24-32); eGFR > 90 ML/MIN
[2023-06-25 07:36] LABS: CREATINE KINASE 8637 U/L (39-308)
[2023-06-25 08:25] LABS: ANISOCYTOSIS 1+; PLATELET ESTIMATE NORMAL; TOTAL CELLS COUNTED 100
[2023-06-25 08:26] LABS: HYPOCHROMASIA 1+
[2023-06-25] MEDS: vancomycin/NS 1 GM ADD-VANTAGE 250 ML IV SCH ×2 (09:55→20:04)
[2023-06-25] MEDS: losartan 25mg tablet PO SCH (09:55)
[2023-06-25] MEDS: aspirin 81mg, enteric-coated 1 TAB TABLET.DR PO SCH (09:55)
[2023-06-25] MEDS: ferrous sulfate 325mg tablet PO SCH ×3 (09:56→18:43)
[2023-06-25 10:00] VITALS: BP 114/74; PULSE 87; RESP 16; TEMP 98.4; O2SAT 99
[2023-06-25] MEDS: ciprofloxacin lact 400MG/200ML 200 ML IV SCH (15:56)
[2023-06-25 18:00] VITALS: BP 128/70; PULSE 102; RESP 16; TEMP 97.9; O2SAT 97
--- NOTE | 2023-06-25 18:08 | NUR ---
Problems reprioritized. Patient report given, questions answered & plan of care reviewed with SUSI GREGORY.
[2023-06-25 20:00] VITALS: O2SAT 97
[2023-06-25 22:00] VITALS: BP 133/73; PULSE 96; RESP 14; TEMP 98.9; O2SAT 98
[2023-06-26] MEDS: HYDROcodone/acetaminophen 10/325mg tab PO PRN ×5 (01:02→19:33)
[2023-06-26] MEDS: ciprofloxacin lact 400MG/200ML 200 ML IV SCH ×2 (02:45→17:05)
[2023-06-26 06:00] VITALS: BP 131/82; PULSE 81; RESP 18; TEMP 98.1; O2SAT 96
[2023-06-26 06:06] LABS: BASOPHILS # (AUTO) 0.1 X10'3 (0-0.2); BASOPHILS % (AUTO) 0.4 % (0-1); EOSINOPHILS # (AUTO) 0.3 X10'3 (0-0.9); EOSINOPHILS % (AUTO) 2.2 % (0-6); HEMATOCRIT 25.4 % (42.0-52.0); HEMOGLOBIN 8.6 g/dl (14.0-17.9); LYMPHOCYTES # (AUTO) 2.2 X10'3 (1.1-4.8); LYMPHOCYTES % (AUTO) 17.4 % (21-51); MEAN CORPUSCULAR HEMOGLOBIN 30.5 PG (27.0-31.0); MEAN CORPUSCULAR HGB CONC 33.8 g/dL (33.0-36.5); MEAN CORPUSCULAR VOLUME 90.2 FL (78-98); MEAN PLATELET VOLUME 7.5 FL (7.4-10.4); MONOCYTES # (AUTO) 1.3 X10'3 (0-0.9); NEUTROPHILS # (AUTO) 8.8 X10'3 (1.8-7.7); PLATELET COUNT 298 X10'3 (140-440); RED BLOOD COUNT 2.81 X10'6 (4.70-6.10); RED CELL DISTRIBUTION WIDTH 16.2 % (11.5-14.5); WHITE BLOOD COUNT 12.6 X10'3 (4.5-11.0)
[2023-06-26 06:20] LABS: ALBUMIN 2.7 G/DL (3.4-5.0); ANION GAP 7 (8-16); BLOOD UREA NITROGEN 10 MG/DL (7-18); BUN/CREATININE RATIO 11.9 (10.0-20.0); CALCIUM 8.8 MG/DL (8.5-10.1); CHLORIDE 102 MMOL/L (99-107); CREATININE 0.84 MG/DL (0.60-1.10); GLUCOSE 110 MG/DL (70-104); SODIUM 138 MMOL/L (135-145); TOTAL CARBON DIOXIDE 29.4 MMOL/L (24-32); eGFR > 90 ML/MIN
--- NOTE | 2023-06-26 06:25 | NUR ---
Problems reprioritized. Patient report given, questions answered & plan of care reviewed with USSI Ortega.
[2023-06-26 06:47] LABS: CREATINE KINASE 6002 U/L (39-308)
--- NOTE | 2023-06-26 06:50 | NUR ---
Patient in room ORTHO 4020B. I have received report from SUSI GREGORY and had the opportunity to ask questions and assume patient care.
[2023-06-26 07:37] LABS: ANISOCYTOSIS 1+; PLATELET ESTIMATE NORMAL; TOTAL CELLS COUNTED 100
[2023-06-26 07:38] LABS: POLYCHROMASIA 1+
[2023-06-26] MEDS: ferrous sulfate 325mg tablet PO SCH ×3 (09:15→17:05)
[2023-06-26] MEDS: losartan 25mg tablet PO SCH (09:15)
[2023-06-26] MEDS: vancomycin/NS 1 GM ADD-VANTAGE 250 ML IV SCH ×2 (09:15→20:32)
[2023-06-26] MEDS: aspirin 81mg, enteric-coated 1 TAB TABLET.DR PO SCH (09:15)
[2023-06-26] MEDS: HYDROmorphone 1 mg/ml syringe IV PRN ×2 (09:51→17:06)
[2023-06-26 10:00] VITALS: BP 161/83; PULSE 96; RESP 16; TEMP 98.7; O2SAT 98
--- NOTE | 2023-06-26 11:55 | NUR ---
FAMILY BRINGS IN FOOD WHICH PATIENT EATS ABOUT Addendum: 06/26/23 at 1200 by Shannon Loera RN Amended: Links added.
[2023-06-26] MEDS ORDERED: gabapentin 300mg capsule PO PRN (12:25)
[2023-06-26] MEDS ORDERED: baclofen 10mg tablet PO PRN (12:25)
--- NOTE | 2023-06-26 14:44 | NUR ---
WOUND VAC EDUCATION PROVIDED BY WOUND CARE 1. Patient instructed to call the Wound Center or their Home Health Agency immediately if: * They notice a change in the color or amount of the fluid in the canister. * Their wound looks more red than usual or has a foul smell. * The skin around their wound looks reddened or irritated. * The dressing feels loose or appears to be loose. * They experience any increase or changes in their pain. * The alarm will not turn off. 2. Patient instructed that they should not be disconnected from suction for more than 2 hours at a time. * If they are not able to get the suction back on, they need to remove the dressing and take all of the foam out of the wound. * Then moisten sterile gauze with normal saline and place on/in the wound. * Change the dressing once a day until arrangements have been made to replace the wound vac dressing. 3. Patient instructed to turn the wound vac machine OFF and call 911 or go to the ED immediately if their canister fills rapidly with blood. 4. If any of these occur while in the hospital tell a nurse immediately. WOUND INFECTION EDUCATION PROVIDED BY WOUND CARE 1. Patient instructed to call their primary doctor, or go the ED immediately if any of the following symptoms occur: * Increased pain in wound * Increase in drainage from the wound * Redness in the skin surrounding the wound * Warmth in the skin surrounding the wound * Bleeding from the wound * Temperature of 101 or greater 2. If any of these occur while in the hospital tell a nurse immediately. Addendum: 06/26/23 at 1445 by Clotilde Dunne RN Amended: Links added.
--- NOTE | 2023-06-26 18:30 | NUR ---
Patient in room ORTHO 4020. I have received report from FREDY and had the opportunity to ask questions and assume patient care.
--- NOTE | 2023-06-26 18:46 | NUR ---
Problems reprioritized. Patient report given, questions answered & plan of care reviewed with SUSI WREN.
[2023-06-26 19:00] VITALS: BP 134/71; PULSE 84; RESP 16; TEMP 98.2; O2SAT 99
[2023-06-26] MEDS: enoxaparin 40mg/0.4ml syringe SUBCUT SCH (20:32)
[2023-06-26 22:00] VITALS: BP 114/71; PULSE 95; RESP 14; TEMP 99.3; O2SAT 99
[2023-06-26] MEDS: HYDROmorphone inj. 0.5 MG/0.5 ML DISP.SYRIN IV PRN (22:47)
[2023-06-27] MEDS: HYDROcodone/acetaminophen 10/325mg tab PO PRN ×3 (02:05→19:23)
--- NOTE | 2023-06-27 03:00 | NUR ---
SCIP FC DC'D PER MD ORDER, PT TOLERATED WELL. URINAL PROVIDED. DRSG TO LEFT LATERAL CALF SATURATED WITH SEROSANGUINEOUS DRAINAGE. DRESSING CHANGED PER MD ORDER. PT TOLERATED WELL
[2023-06-27] MEDS: ciprofloxacin lact 400MG/200ML 200 ML IV SCH ×2 (03:04→15:05)
[2023-06-27 06:00] VITALS: BP 140/78; PULSE 91; RESP 18; TEMP 99.2; O2SAT 98
[2023-06-27 06:19] LABS: BASOPHILS # (AUTO) 0.1 X10'3 (0-0.2); BASOPHILS % (AUTO) 0.4 % (0-1); EOSINOPHILS # (AUTO) 0.4 X10'3 (0-0.9); HEMATOCRIT 27.7 % (42.0-52.0); HEMOGLOBIN 9.3 g/dl (14.0-17.9); LYMPHOCYTES # (AUTO) 1.6 X10'3 (1.1-4.8); LYMPHOCYTES % (AUTO) 11.3 % (21-51); MEAN CORPUSCULAR HEMOGLOBIN 30.3 PG (27.0-31.0); MEAN CORPUSCULAR HGB CONC 33.6 g/dL (33.0-36.5); MEAN CORPUSCULAR VOLUME 90.2 FL (78-98); MEAN PLATELET VOLUME 7.3 FL (7.4-10.4); MONOCYTES # (AUTO) 1.7 X10'3 (0-0.9); MONOCYTES % (AUTO) 11.7 % (2-12); NEUTROPHILS # (AUTO) 10.5 X10'3 (1.8-7.7); NEUTROPHILS % (AUTO) 73.6 % (42-75); PLATELET COUNT 396 X10'3 (140-440); RED BLOOD COUNT 3.08 X10'6 (4.70-6.10); WHITE BLOOD COUNT 14.2 X10'3 (4.5-11.0)
--- NOTE | 2023-06-27 06:27 | NUR ---
Problems reprioritized. Patient report given, questions answered & plan of care reviewed with FREDY.
[2023-06-27 06:44] LABS: ALBUMIN 2.6 G/DL (3.4-5.0); ANION GAP 9 (8-16); BLOOD UREA NITROGEN 11 MG/DL (7-18); BUN/CREATININE RATIO 13.3 (10.0-20.0); CALCIUM 8.8 MG/DL (8.5-10.1); CHLORIDE 100 MMOL/L (99-107); CREATININE 0.83 MG/DL (0.60-1.10); GLUCOSE 111 MG/DL (70-104); POTASSIUM 4.1 MMOL/L (3.5-5.1); SODIUM 136 MMOL/L (135-145); TOTAL CARBON DIOXIDE 27.1 MMOL/L (24-32); eGFR > 90 ML/MIN
[2023-06-27 06:56] LABS: CREATINE KINASE 3579 U/L (39-308)
--- NOTE | 2023-06-27 07:32 | NUR ---
Patient in room ORTHO 4020B. I have received report from SUSI WREN and had the opportunity to ask questions and assume patient care.
[2023-06-27 07:44] LABS: PLATELET ESTIMATE NORMAL; TOTAL CELLS COUNTED 100
[2023-06-27 07:45] LABS: ELLIPTOCYTES FEW; HYPOCHROMASIA 1+; POLYCHROMASIA FEW; SCHISTOCYTES FEW
[2023-06-27] MEDS ORDERED: losartan 25mg tablet PO SCH (08:00)
[2023-06-27] MEDS: aspirin 81mg, enteric-coated 1 TAB TABLET.DR PO SCH (08:33)
[2023-06-27] MEDS: ferrous sulfate 325mg tablet PO SCH ×3 (08:34→17:30)
[2023-06-27] MEDS: losartan 25mg tablet PO SCH (08:34)
[2023-06-27] MEDS: vancomycin/NS 1 GM ADD-VANTAGE 250 ML IV SCH ×2 (08:36→19:22)
[2023-06-27 10:00] VITALS: BP 131/74; PULSE 103; RESP 18; TEMP 98; O2SAT 97
--- NOTE | 2023-06-27 14:15 | NUR ---
F/u 06/27: Pt PO remains poor ~35% avg regular diet though is having food brought in from outside likely not meet nutrient needs. Pt/family seen by RD at bedside for f/u verbal high protein diet ed. Pt SO reports high protein diet at home which they will continue to follow to include protein supplementation. RD reviewed ONS options and encouraged to bring in from outside to assist w/ wound healing. Pt is still agreeable to Nuno rojas ONS BID though pending physician approval via EMR and does confirm 6 days constipation though "feels like going to go soon". RD d/w RN regarding Nuno rojas pending physician verification via EMR, routine MVI supplement for wound healing, and routine bowel regimen if MD agreeable. LBM 06/21 receiving routine iron and pain meds without bowel regimen this admit. Will continue to follow. Recommendations: 1. Continue regular diet; encourage PO intake and allow outside food to optimize PO intake 2. [place] Nuno shake BIDLD to assist with wound healing, pending physician approval in EMR 3. Consider routine MVI, Vitamin C, and Zinc to assist with wound healing 4. Routine bowel care; 6 days constipation receiving routine iron and pain meds without bowel regimen this LOS 5. Weekly scaled weights Addendum: 06/27/23 at [address] Amended: Links added.
[2023-06-27] MEDS: HYDROmorphone inj. 0.5 MG/0.5 ML DISP.SYRIN IV PRN (15:05)
[2023-06-27] MEDS ORDERED: temazepam 15mg capsule PO PRN (17:45)
[2023-06-27 18:00] VITALS: BP 129/68; PULSE 92; RESP 15; TEMP 97.9; O2SAT 100
--- NOTE | 2023-06-27 18:46 | NUR ---
Problems reprioritized. Patient report given, questions answered & plan of care reviewed with SUSI DIAZ.
[2023-06-27 19:00] VITALS: RESP 16; O2SAT 99
[2023-06-27] MEDS: enoxaparin 40mg/0.4ml syringe SUBCUT SCH (19:23)
[2023-06-27] MEDS: magnesium hydroxide 30ml (MOM) UD suspension PO SCH (19:23)
[2023-06-27] MEDS: HYDROmorphone 1 mg/ml syringe IV PRN (21:09)
[2023-06-27 22:00] VITALS: BP 138/79; PULSE 107; RESP 16; TEMP 98.3; O2SAT 99
[2023-06-28] MEDS: HYDROcodone/acetaminophen 10/325mg tab PO PRN ×4 (01:09→23:43)
[2023-06-28] MEDS: ciprofloxacin lact 400MG/200ML 200 ML IV SCH ×2 (03:21→15:45)
[2023-06-28 06:00] VITALS: BP 141/80; PULSE 86; RESP 18; TEMP 98.2; O2SAT 100
[2023-06-28] MEDS: ferrous sulfate 325mg tablet PO SCH ×3 (07:34→17:43)
[2023-06-28] MEDS: aspirin 81mg, enteric-coated 1 TAB TABLET.DR PO SCH (07:35)
[2023-06-28] MEDS: losartan 25mg tablet PO SCH (07:36)
[2023-06-28] MEDS: multivitamins, therapeutics tablet PO SCH (07:38)
[2023-06-28] MEDS: magnesium hydroxide 30ml (MOM) UD suspension PO SCH ×2 (07:39→20:35)
[2023-06-28] MEDS: vancomycin/NS 1 GM ADD-VANTAGE 250 ML IV SCH ×2 (07:40→20:52)
[2023-06-28 08:30] VITALS: RESP 18; O2SAT 100
[2023-06-28 08:32] LABS: BASOPHILS # (AUTO) 0.1 X10'3 (0-0.2); BASOPHILS % (AUTO) 0.3 % (0-1); EOSINOPHILS # (AUTO) 0.4 X10'3 (0-0.9); EOSINOPHILS % (AUTO) 2.5 % (0-6); HEMATOCRIT 28.8 % (42.0-52.0); HEMOGLOBIN 9.5 g/dl (14.0-17.9); LYMPHOCYTES # (AUTO) 1.3 X10'3 (1.1-4.8); MEAN CORPUSCULAR HEMOGLOBIN 30.8 PG (27.0-31.0); MEAN CORPUSCULAR HGB CONC 32.8 g/dL (33.0-36.5); MEAN CORPUSCULAR VOLUME 93.6 FL (78-98); MEAN PLATELET VOLUME 6.7 FL (7.4-10.4); MONOCYTES # (AUTO) 1.6 X10'3 (0-0.9); MONOCYTES % (AUTO) 9.5 % (2-12); NEUTROPHILS # (AUTO) 13.4 X10'3 (1.8-7.7); NEUTROPHILS % (AUTO) 79.7 % (42-75); PLATELET COUNT 445 X10'3 (140-440); RED BLOOD COUNT 3.07 X10'6 (4.70-6.10); RED CELL DISTRIBUTION WIDTH 16.2 % (11.5-14.5); WHITE BLOOD COUNT 16.8 X10'3 (4.5-11.0)
[2023-06-28 08:55] LABS: ALANINE AMINOTRANSFERASE 64 U/L (12-78); ALBUMIN 2.6 G/DL (3.4-5.0); ALBUMIN/GLOBULIN RATIO 0.7 (1.1-1.5); ALKALINE PHOSPHATASE 57 IU/L (46-116); ANION GAP 8 (8-16); ASPARTATE AMINO TRANSFERASE 102 U/L (10-37); BLOOD UREA NITROGEN 17 MG/DL (7-18); CALCIUM 8.1 MG/DL (8.5-10.1); CHLORIDE 99 MMOL/L (99-107); CREATININE 0.85 MG/DL (0.60-1.10); GLUCOSE 122 MG/DL (70-104); SODIUM 133 MMOL/L (135-145); TOTAL CARBON DIOXIDE 25.8 MMOL/L (24-32); TOTAL PROTEIN 6.1 G/DL (6.4-8.2); eGFR > 90 ML/MIN
[2023-06-28 08:57] LABS: CREATINE KINASE 2295 U/L (39-308)
[2023-06-28 10:00] VITALS: BP 136/84; PULSE 99; RESP 16; TEMP 97.8; O2SAT 99
[2023-06-28] MEDS: HYDROmorphone 1 mg/ml syringe IV PRN ×3 (10:34→20:51)
[2023-06-28 10:42] LABS: TOTAL CELLS COUNTED 100
[2023-06-28 10:43] LABS: ANISOCYTOSIS 1+; PLATELET ESTIMATE NORMAL
--- NOTE | 2023-06-28 12:25 | NUR ---
Received orders from Dr Gilman ok to leave wound vac off of left groin incision with lise. Dony RN with wound care aware ok to leave off
[2023-06-28] MEDS ORDERED: iohexol 300mg/ml 100ml inj. ONE (12:44)
--- NOTE | 2023-06-28 12:49 | NUR ---
Patient going to CT via wheelchair wound vac with patient running at 125mmhg low continuous no leaks
[2023-06-28] MEDS: JUVEN Shake w/Arg/Glut/Ca2+Bmb (Juven 19.3gm) pkt 240ml PO SCH ×2 (13:25→17:46)
--- NOTE | 2023-06-28 14:37 | NUR ---
WOUND VAC EDUCATION PROVIDED BY WOUND CARE 1. Patient instructed to call the Wound Center or their Home Health Agency immediately if: * They notice a change in the color or amount of the fluid in the canister. * Their wound looks more red than usual or has a foul smell. * The skin around their wound looks reddened or irritated. * The dressing feels loose or appears to be loose. * They experience any increase or changes in their pain. * The alarm will not turn off. 2. Patient instructed that they should not be disconnected from suction for more than 2 hours at a time. * If they are not able to get the suction back on, they need to remove the dressing and take all of the foam out of the wound. * Then moisten sterile gauze with normal saline and place on/in the wound. * Change the dressing once a day until arrangements have been made to replace the wound vac dressing. 3. Patient instructed to turn the wound vac machine OFF and call 911 or go to the ED immediately if their canister fills rapidly with blood. 4. If any of these occur while in the hospital tell a nurse immediately. Addendum: 06/28/23 at 1438 by Berenice Grover LVN Amended: Links added.
[2023-06-28 18:00] VITALS: BP 124/72; PULSE 77; RESP 16; TEMP 98.4; O2SAT 100
--- NOTE | 2023-06-28 19:04 | NUR ---
Patient report given to SUSI Condon and MARILYN Luis.
[2023-06-28] MEDS: enoxaparin 40mg/0.4ml syringe SUBCUT SCH (20:35)
[2023-06-28 22:00] VITALS: BP 108/65; PULSE 107; RESP 18; TEMP 97.7; O2SAT 96
[2023-06-29] MEDS: ciprofloxacin lact 400MG/200ML 200 ML IV SCH ×2 (03:40→15:27)
[2023-06-29] MEDS: ondansetron/PF 4mg/2ml inj IV PRN (03:44)
--- NOTE | 2023-06-29 03:48 | NUR ---
pt nauseated. came on suddenly. zofran given. will notify RN if ineffective
[2023-06-29] MEDS: HYDROcodone/acetaminophen 10/325mg tab PO PRN ×4 (04:23→19:48)
--- NOTE | 2023-06-29 05:30 | NUR ---
agree with assessment and charting of MARILYN Luis
[2023-06-29 06:00] VITALS: BP 124/69; PULSE 97; RESP 16; TEMP 97.6; O2SAT 100
--- NOTE | 2023-06-29 06:37 | NUR ---
Report given to Silvina RN and Mariela GOLDMAN. Dressing changed on overnight associate, wound vac canister changed this AM prior to shift change. Pulses intact, Infectious disease MD to consult
[2023-06-29 06:44] LABS: BASOPHILS % (AUTO) 0.2 % (0-1); EOSINOPHILS # (AUTO) 0.5 X10'3 (0-0.9); EOSINOPHILS % (AUTO) 3.5 % (0-6); HEMOGLOBIN 9.3 g/dl (14.0-17.9); LYMPHOCYTES # (AUTO) 1.5 X10'3 (1.1-4.8); LYMPHOCYTES % (AUTO) 10.2 % (21-51); MEAN CORPUSCULAR HEMOGLOBIN 30.1 PG (27.0-31.0); MEAN CORPUSCULAR HGB CONC 33.2 g/dL (33.0-36.5); MEAN CORPUSCULAR VOLUME 90.5 FL (78-98); MEAN PLATELET VOLUME 6.9 FL (7.4-10.4); MONOCYTES % (AUTO) 13.8 % (2-12); NEUTROPHILS # (AUTO) 10.7 X10'3 (1.8-7.7); NEUTROPHILS % (AUTO) 72.3 % (42-75); PLATELET COUNT 525 X10'3 (140-440); RED BLOOD COUNT 3.09 X10'6 (4.70-6.10); RED CELL DISTRIBUTION WIDTH 16.3 % (11.5-14.5); WHITE BLOOD COUNT 14.7 X10'3 (4.5-11.0)
--- NOTE | 2023-06-29 06:52 | NUR ---
Patient in room ORTHO 4020. I have received report from Taurus and had the opportunity to ask questions and assume patient care.
[2023-06-29 06:58] LABS: ALANINE AMINOTRANSFERASE 58 U/L (12-78); ALBUMIN 2.6 G/DL (3.4-5.0); ALBUMIN/GLOBULIN RATIO 0.8 (1.1-1.5); ALKALINE PHOSPHATASE 59 IU/L (46-116); ANION GAP 6 (8-16); ASPARTATE AMINO TRANSFERASE 77 U/L (10-37); BILIRUBIN,TOTAL 0.9 MG/DL (0.1-1.0); BLOOD UREA NITROGEN 16 MG/DL (7-18); CALCIUM 8.2 MG/DL (8.5-10.1); CHLORIDE 98 MMOL/L (99-107); CREATININE 0.84 MG/DL (0.60-1.10); GLUCOSE 109 MG/DL (70-104); SODIUM 131 MMOL/L (135-145); TOTAL CARBON DIOXIDE 26.7 MMOL/L (24-32); eGFR > 90 ML/MIN
[2023-06-29 08:30] VITALS: RESP 16; O2SAT 100
[2023-06-29] MEDS: aspirin 81mg, enteric-coated 1 TAB TABLET.DR PO SCH (08:30)
[2023-06-29] MEDS: ferrous sulfate 325mg tablet PO SCH ×3 (08:31→17:39)
[2023-06-29] MEDS: multivitamins, therapeutics tablet PO SCH (08:31)
[2023-06-29] MEDS: losartan 25mg tablet PO SCH (08:34)
[2023-06-29] MEDS: magnesium hydroxide 30ml (MOM) UD suspension PO SCH ×2 (08:34→19:46)
[2023-06-29] MEDS: vancomycin/NS 1 GM ADD-VANTAGE 250 ML IV SCH ×2 (08:35→21:32)
[2023-06-29 10:00] VITALS: BP 117/69; PULSE 92; RESP 18; TEMP 98.2; O2SAT 95
[2023-06-29 10:24] LABS: TOTAL CELLS COUNTED 100
[2023-06-29 10:25] LABS: ANISOCYTOSIS 1+; PLATELET ESTIMATE INCREASED
[2023-06-29] MEDS: HYDROmorphone 1 mg/ml syringe IV PRN ×3 (11:21→21:41)
[2023-06-29] MEDS: JUVEN Shake w/Arg/Glut/Ca2+Bmb (Juven 19.3gm) pkt 240ml PO SCH ×2 (12:46→17:37)
[2023-06-29] MEDS: normal saline 1000ml 1,000 ML IV SCH (15:28)
--- NOTE | 2023-06-29 17:11 | NUR ---
Agree with assessment and charting by Mariela Rosado RN
[2023-06-29 18:00] VITALS: BP 97/67; PULSE 103; RESP 20; TEMP 97.4; O2SAT 97
--- NOTE | 2023-06-29 18:34 | NUR ---
Problems reprioritized. Patient report given, questions answered & plan of care reviewed with SUSI Lizarraga and MARILYN Luis.
[2023-06-29 19:00] VITALS: RESP 17; O2SAT 99
[2023-06-29] MEDS: enoxaparin 40mg/0.4ml syringe SUBCUT SCH (19:46)
[2023-06-29 22:00] VITALS: BP 120/71; PULSE 97; RESP 17; TEMP 98.1; O2SAT 99
[2023-06-30] MEDS: HYDROcodone/acetaminophen 10/325mg tab PO PRN ×4 (01:28→22:53)
[2023-06-30] MEDS: normal saline 1000ml 1,000 ML IV SCH ×2 (02:44→20:00)
[2023-06-30] MEDS ORDERED: ciprofloxacin 250mg tablet PO SCH (03:00)
--- NOTE | 2023-06-30 03:15 | NUR ---
Patient in room ORTHO 4020. I have received report from nigel estrada and had the opportunity to ask questions and assume patient care.
--- NOTE | 2023-06-30 04:28 | NUR ---
SENIOR ACCOUNTING ANALYST documentation: I have reviewed and agree with all interventions, assessments performed and documented by Toby Martinez LVN.
[2023-06-30 05:00] VITALS: BP 132/74; PULSE 85; RESP 14; TEMP 97.3; O2SAT 99
[2023-06-30] MEDS: HYDROmorphone 1 mg/ml syringe IV PRN ×4 (05:28→20:06)
--- NOTE | 2023-06-30 06:37 | NUR ---
dressing changed this shift, no changes to wound. New IV placed, infectious disease MD to consult
--- NOTE | 2023-06-30 06:55 | NUR ---
Patient in room ORTHO 4020. I have received report from Toby and had the opportunity to ask questions and assume patient care.
--- NOTE | 2023-06-30 07:02 | NUR ---
Problems reprioritized. Patient report given, questions answered & plan of care reviewed with emma estrada.
[2023-06-30 07:43] LABS: BASOPHILS % (AUTO) 0.3 % (0-1); EOSINOPHILS # (AUTO) 0.5 X10'3 (0-0.9); EOSINOPHILS % (AUTO) 3.7 % (0-6); HEMATOCRIT 26.9 % (42.0-52.0); HEMOGLOBIN 8.9 g/dl (14.0-17.9); LYMPHOCYTES # (AUTO) 1.3 X10'3 (1.1-4.8); LYMPHOCYTES % (AUTO) 10.4 % (21-51); MEAN CORPUSCULAR HEMOGLOBIN 30.1 PG (27.0-31.0); MEAN PLATELET VOLUME 6.6 FL (7.4-10.4); MONOCYTES # (AUTO) 1.2 X10'3 (0-0.9); MONOCYTES % (AUTO) 10.1 % (2-12); NEUTROPHILS # (AUTO) 9.3 X10'3 (1.8-7.7); NEUTROPHILS % (AUTO) 75.5 % (42-75); PLATELET COUNT 621 X10'3 (140-440); RED BLOOD COUNT 2.96 X10'6 (4.70-6.10); WHITE BLOOD COUNT 12.4 X10'3 (4.5-11.0)
[2023-06-30 08:12] LABS: ALANINE AMINOTRANSFERASE 50 U/L (12-78); ALBUMIN 2.5 G/DL (3.4-5.0); ALBUMIN/GLOBULIN RATIO 0.8 (1.1-1.5); ALKALINE PHOSPHATASE 62 IU/L (46-116); ANION GAP 9 (8-16); ASPARTATE AMINO TRANSFERASE 55 U/L (10-37); BILIRUBIN,TOTAL 0.7 MG/DL (0.1-1.0); BLOOD UREA NITROGEN 19 MG/DL (7-18); BUN/CREATININE RATIO 24.1 (10.0-20.0); CALCIUM 8.1 MG/DL (8.5-10.1); CHLORIDE 101 MMOL/L (99-107); CREATININE 0.79 MG/DL (0.60-1.10); GLUCOSE 125 MG/DL (70-104); POTASSIUM 3.6 MMOL/L (3.5-5.1); SODIUM 135 MMOL/L (135-145); TOTAL CARBON DIOXIDE 24.7 MMOL/L (24-32); TOTAL PROTEIN 5.7 G/DL (6.4-8.2); eGFR > 90 ML/MIN
[2023-06-30 08:14] LABS: ANISOCYTOSIS 1+; PLATELET ESTIMATE INCREASED; TOTAL CELLS COUNTED 100
[2023-06-30 08:15] LABS: POLYCHROMASIA 1+
[2023-06-30] MEDS: losartan 25mg tablet PO SCH (08:31)
[2023-06-30] MEDS: ferrous sulfate 325mg tablet PO SCH ×3 (08:31→17:44)
[2023-06-30] MEDS: aspirin 81mg, enteric-coated 1 TAB TABLET.DR PO SCH (08:31)
[2023-06-30] MEDS: magnesium hydroxide 30ml (MOM) UD suspension PO SCH ×2 (08:31→20:14)
[2023-06-30] MEDS: multivitamins, therapeutics tablet PO SCH (08:31)
[2023-06-30] MEDS: vancomycin/NS 1 GM ADD-VANTAGE 250 ML IV SCH ×2 (08:38→20:05)
[2023-06-30 10:00] VITALS: BP 175/70; PULSE 89; RESP 16; TEMP 98.2; O2SAT 99
[2023-06-30] MEDS: JUVEN Shake w/Arg/Glut/Ca2+Bmb (Juven 19.3gm) pkt 240ml PO SCH ×2 (12:42→17:45)
--- NOTE | 2023-06-30 13:13 | NUR ---
WOUND VAC EDUCATION PROVIDED BY WOUND CARE 1. Patient instructed to call the Wound Center or their Home Health Agency immediately if: * They notice a change in the color or amount of the fluid in the canister. * Their wound looks more red than usual or has a foul smell. * The skin around their wound looks reddened or irritated. * The dressing feels loose or appears to be loose. * They experience any increase or changes in their pain. * The alarm will not turn off. 2. Patient instructed that they should not be disconnected from suction for more than 2 hours at a time. * If they are not able to get the suction back on, they need to remove the dressing and take all of the foam out of the wound. * Then moisten sterile gauze with normal saline and place on/in the wound. * Change the dressing once a day until arrangements have been made to replace the wound vac dressing. 3. Patient instructed to turn the wound vac machine OFF and call 911 or go to the ED immediately if their canister fills rapidly with blood. 4. If any of these occur while in the hospital tell a nurse immediately. Addendum: 06/30/23 at 1314 by Clotilde Dunne RN Amended: Links added.
--- NOTE | 2023-06-30 13:33 | NUR ---
F/u 06/30: Pt continues on a regular diet, intake appears to be improved this follow up with an average PO intake of 61% x 7 meals and Nuno Smoothie BID with average intake of 56%x 4 meals. PO and Nuno supplement met 92% estimate protein needs and 100% of estimated kcal needs however suspected higher due to supervisor cigar making machine of family bringing outside food per EMR on 06/26. Pt continues with a wound vac to left calf per WOC note. LBM on 06/29 receiving MoM per EMR. Will continue to follow and make recommendations as appropriate. Recommendations: 1. Continue regular diet; encourage PO intake and allow outside food to optimize PO intake 2. continue [place] Nuno shake BIDLD to assist with wound healing, 3. routine bowel care 4. Weekly scaled weights Addendum: 06/30/23 at [address] Amended: Links added.
[2023-06-30 17:00] VITALS: BP 141/72; PULSE 99; RESP 16; TEMP 97.9; O2SAT 97
--- NOTE | 2023-06-30 18:34 | NUR ---
Problems reprioritized. Patient report given, questions answered & plan of care reviewed with
[2023-06-30 19:00] VITALS: RESP 16; O2SAT 97
[2023-06-30] MEDS: enoxaparin 40mg/0.4ml syringe SUBCUT SCH (20:05)
[2023-06-30 22:00] VITALS: BP 141/74; PULSE 86; RESP 18; TEMP 99.1; O2SAT 99
[2023-07-01] MEDS: HYDROcodone/acetaminophen 10/325mg tab PO PRN ×3 (02:50→14:50)
[2023-07-01 06:00] VITALS: BP 144/77; PULSE 92; RESP 18; TEMP 97.7; O2SAT 99
[2023-07-01] MEDS: normal saline 1000ml 1,000 ML IV SCH ×2 (06:00→09:08)
[2023-07-01 06:44] LABS: BASOPHILS # (AUTO) 0.1 X10'3 (0-0.2); EOSINOPHILS # (AUTO) 0.5 X10'3 (0-0.9); HEMATOCRIT 27.5 % (42.0-52.0); HEMOGLOBIN 9.2 g/dl (14.0-17.9); MEAN CORPUSCULAR HGB CONC 33.4 g/dL (33.0-36.5); MONOCYTES # (AUTO) 1.3 X10'3 (0-0.9)
--- NOTE | 2023-07-01 06:48 | NUR ---
Problems reprioritized. Patient report given, questions answered & plan of care reviewed with CHRISTINA GOLDMAN.
[2023-07-01 06:49] LABS: BASOPHILS % (AUTO) 0.9 % (0-1); EOSINOPHILS % (AUTO) 4.2 % (0-6); LYMPHOCYTES # (AUTO) 1.7 X10'3 (1.1-4.8); LYMPHOCYTES % (AUTO) 14.6 % (21-51); MEAN CORPUSCULAR HEMOGLOBIN 30.1 PG (27.0-31.0); MEAN CORPUSCULAR VOLUME 90.4 FL (78-98); MEAN PLATELET VOLUME 6.9 FL (7.4-10.4); MONOCYTES % (AUTO) 11.2 % (2-12); NEUTROPHILS # (AUTO) 7.9 X10'3 (1.8-7.7); NEUTROPHILS % (AUTO) 69.1 % (42-75); PLATELET COUNT 655 X10'3 (140-440); RED BLOOD COUNT 3.05 X10'6 (4.70-6.10); RED CELL DISTRIBUTION WIDTH 16.2 % (11.5-14.5); WHITE BLOOD COUNT 11.4 X10'3 (4.5-11.0)
[2023-07-01 06:54] LABS: ALANINE AMINOTRANSFERASE 49 U/L (12-78); ALBUMIN 2.5 G/DL (3.4-5.0); ALBUMIN/GLOBULIN RATIO 0.7 (1.1-1.5); ALKALINE PHOSPHATASE 55 IU/L (46-116); ANION GAP 6 (8-16); ASPARTATE AMINO TRANSFERASE 50 U/L (10-37); BILIRUBIN,TOTAL 0.7 MG/DL (0.1-1.0); BLOOD UREA NITROGEN 13 MG/DL (7-18); BUN/CREATININE RATIO 15.7 (10.0-20.0); CALCIUM 8.5 MG/DL (8.5-10.1); CHLORIDE 104 MMOL/L (99-107); CREATININE 0.83 MG/DL (0.60-1.10); GLUCOSE 103 MG/DL (70-104); POTASSIUM 3.8 MMOL/L (3.5-5.1); SODIUM 137 MMOL/L (135-145); TOTAL CARBON DIOXIDE 27.2 MMOL/L (24-32); TOTAL PROTEIN 5.9 G/DL (6.4-8.2); eGFR > 90 ML/MIN
[2023-07-01] MEDS: HYDROmorphone 1 mg/ml syringe IV PRN (06:59)
[2023-07-01 09:00] VITALS: RESP 16
[2023-07-01] MEDS: magnesium hydroxide 30ml (MOM) UD suspension PO SCH ×3 (09:05→19:42)
[2023-07-01] MEDS: vancomycin/NS 1 GM ADD-VANTAGE 250 ML IV SCH ×2 (09:06→19:27)
[2023-07-01] MEDS: multivitamins, therapeutics tablet PO SCH (09:06)
[2023-07-01] MEDS: aspirin 81mg, enteric-coated 1 TAB TABLET.DR PO SCH (09:06)
[2023-07-01] MEDS: ferrous sulfate 325mg tablet PO SCH ×3 (09:06→17:45)
[2023-07-01] MEDS: losartan 25mg tablet PO SCH (09:06)
[2023-07-01 09:59] VITALS: BP 184/103; PULSE 108; RESP 22; TEMP 98.1; O2SAT 100
[2023-07-01] MEDS: JUVEN Shake w/Arg/Glut/Ca2+Bmb (Juven 19.3gm) pkt 240ml PO SCH ×2 (12:30→17:46)
[2023-07-01 18:00] VITALS: BP 131/60; PULSE 88; RESP 16; TEMP 97.5; O2SAT 99
--- NOTE | 2023-07-01 18:23 | NUR ---
Problems reprioritized. Patient report given, questions answered & plan of care reviewed with Berenice GOLDMAN.
[2023-07-01 19:00] VITALS: RESP 15; O2SAT 95
[2023-07-01] MEDS: enoxaparin 40mg/0.4ml syringe SUBCUT SCH (19:33)
[2023-07-01] MEDS: HYDROmorphone inj. 0.5 MG/0.5 ML DISP.SYRIN IV PRN ×2 (19:34→23:49)
[2023-07-01 22:00] VITALS: BP 151/76; PULSE 94; RESP 16; TEMP 98.2; O2SAT 96
--- NOTE | 2023-07-01 23:20 | NUR ---
DRESSING CHANGED TO LLE PER WOC ORDERS. PATIENT TOLERATED IT WELL BUT REQUESTED DILAUDID AFTER FINISHED. MED GIVEN AND FOB ELEVATED TO HELP WITH PAIN RELIEF.
[2023-07-02] MEDS: HYDROmorphone inj. 0.5 MG/0.5 ML DISP.SYRIN IV PRN ×2 (03:40→20:27)
[2023-07-02 06:00] VITALS: BP 150/70; PULSE 84; RESP 18; TEMP 98.3; O2SAT 99
--- NOTE | 2023-07-02 06:43 | NUR ---
Problems reprioritized. Patient report given, questions answered & plan of care reviewed with BENITO RN.
[2023-07-02] MEDS ORDERED: VANCOMYCIN LEVEL IV ONE (07:30)
[2023-07-02] MEDS: magnesium hydroxide 30ml (MOM) UD suspension PO SCH ×2 (08:00→20:26)
[2023-07-02] MEDS: ferrous sulfate 325mg tablet PO SCH ×3 (08:30→17:30)
[2023-07-02] MEDS: multivitamins, therapeutics tablet PO SCH (08:58)
[2023-07-02] MEDS: aspirin 81mg, enteric-coated 1 TAB TABLET.DR PO SCH (08:58)
[2023-07-02 08:59] LABS: BASOPHILS # (AUTO) 0.1 X10'3 (0-0.2); EOSINOPHILS # (AUTO) 0.2 X10'3 (0-0.9); EOSINOPHILS % (AUTO) 1.2 % (0-6); LYMPHOCYTES # (AUTO) 1.2 X10'3 (1.1-4.8)
[2023-07-02] MEDS: losartan 25mg tablet PO SCH (08:59)
[2023-07-02 09:00] VITALS: RESP 18
[2023-07-02 09:01] LABS: BASOPHILS % (AUTO) 0.9 % (0-1); HEMATOCRIT 28.2 % (42.0-52.0); HEMOGLOBIN 9.4 g/dl (14.0-17.9); MEAN CORPUSCULAR HEMOGLOBIN 30.3 PG (27.0-31.0); MEAN CORPUSCULAR HGB CONC 33.5 g/dL (33.0-36.5); MEAN CORPUSCULAR VOLUME 90.5 FL (78-98); MEAN PLATELET VOLUME 7.1 FL (7.4-10.4); MONOCYTES # (AUTO) 1.3 X10'3 (0-0.9); MONOCYTES % (AUTO) 8.5 % (2-12); NEUTROPHILS # (AUTO) 12.1 X10'3 (1.8-7.7); NEUTROPHILS % (AUTO) 81.4 % (42-75); PLATELET COUNT 776 X10'3 (140-440); RED BLOOD COUNT 3.12 X10'6 (4.70-6.10); RED CELL DISTRIBUTION WIDTH 15.9 % (11.5-14.5); WHITE BLOOD COUNT 14.9 X10'3 (4.5-11.0)
[2023-07-02] MEDS: vancomycin/NS 1 GM ADD-VANTAGE 250 ML IV SCH (09:06)
[2023-07-02] MEDS: HYDROcodone/acetaminophen 10/325mg tab PO PRN ×3 (09:06→22:48)
[2023-07-02 09:08] LABS: ALANINE AMINOTRANSFERASE 49 U/L (12-78); ALBUMIN 2.7 G/DL (3.4-5.0); ALBUMIN/GLOBULIN RATIO 0.7 (1.1-1.5); ALKALINE PHOSPHATASE 61 IU/L (46-116); ANION GAP 7 (8-16); ASPARTATE AMINO TRANSFERASE 43 U/L (10-37); BILIRUBIN,TOTAL 0.8 MG/DL (0.1-1.0); BLOOD UREA NITROGEN 12 MG/DL (7-18); CALCIUM 8.7 MG/DL (8.5-10.1); CHLORIDE 101 MMOL/L (99-107); GLUCOSE 119 MG/DL (70-104); POTASSIUM 3.8 MMOL/L (3.5-5.1); SODIUM 133 MMOL/L (135-145); TOTAL CARBON DIOXIDE 25.2 MMOL/L (24-32); TOTAL PROTEIN 6.4 G/DL (6.4-8.2); eGFR > 90 ML/MIN
[2023-07-02 09:09] LABS: VANCOMYCIN,TROUGH 7.7 UG/ML (6.0-14.0)
[2023-07-02 10:57] VITALS: BP 124/74; PULSE 86; RESP 18; TEMP 97.6; O2SAT 99
[2023-07-02] MEDS: JUVEN Shake w/Arg/Glut/Ca2+Bmb (Juven 19.3gm) pkt 240ml PO SCH ×2 (12:30→17:32)
[2023-07-02] MEDS ORDERED: HYDROcodone/acetaminophen 10/325mg tab PO PRN (14:25)
[2023-07-02] MEDS: HYDROmorphone 1 mg/ml syringe IV PRN (16:13)
[2023-07-02 18:00] VITALS: BP 113/64; PULSE 92; RESP 16; TEMP 98.4; O2SAT 100
--- NOTE | 2023-07-02 18:05 | NUR ---
Problems reprioritized. Patient report given, questions answered & plan of care reviewed with Berenice GOLDMAN.
[2023-07-02 20:00] VITALS: RESP 15; O2SAT 95
[2023-07-02] MEDS: enoxaparin 40mg/0.4ml syringe SUBCUT SCH (20:28)
[2023-07-02] MEDS: VANCOMYCIN 1,500MG in normal saline IV soln 300 ML IV SCH (20:37)
[2023-07-02 22:00] VITALS: BP 125/61; PULSE 91; RESP 16; TEMP 98.8; O2SAT 99
[2023-07-03] VITALS (9 sets, daily range): BP systolic 124–144; BP diastolic 66–80; PULSE 75–103; RESP 14–18; TEMP 97.3–98.4; O2SAT 98–99
--- NOTE | 2023-07-03 00:13 | NUR ---
2248 I ADMINISTERED 2 NORCO: SCANNED THE MEDS AND GAVE THEM TO THE PATIENT THROWING THE BLISTER MED MELODIE INTO THE PHARMACY SHARPS BIN, I THEN REALIZED, THE MEDS DID NOT SCAN AND THEREFORE, ADMINISTERED USING THE ADMINISTER TAB AT THE BOTTOM OF THE SCREEN. THIS ERROR WAS NOT FOR LACK OF EFFORT, BUT WAS AN OVERSIGHT THAT I WAS NOT ABLE TO RECTIFY CORRECTLY I HAD ALREADY DISPOSED OF THE PACKAGING
[2023-07-03] MEDS: HYDROmorphone inj. 0.5 MG/0.5 ML DISP.SYRIN IV PRN (02:21)
[2023-07-03 06:10] LABS: HEMOGLOBIN 9.5 g/dl (14.0-17.9); LYMPHOCYTES % (AUTO) 14.7 % (21-51); MEAN PLATELET VOLUME 6.7 FL (7.4-10.4); MONOCYTES # (AUTO) 1.4 X10'3 (0-0.9); NEUTROPHILS % (AUTO) 69.6 % (42-75)
[2023-07-03 06:12] LABS: BASOPHILS # (AUTO) 0.1 X10'3 (0-0.2); BASOPHILS % (AUTO) 0.8 % (0-1); EOSINOPHILS # (AUTO) 0.6 X10'3 (0-0.9); EOSINOPHILS % (AUTO) 4.3 % (0-6); HEMATOCRIT 28.8 % (42.0-52.0); MEAN CORPUSCULAR HEMOGLOBIN 30.6 PG (27.0-31.0); MEAN CORPUSCULAR VOLUME 92.6 FL (78-98); MONOCYTES % (AUTO) 10.6 % (2-12); NEUTROPHILS # (AUTO) 9.4 X10'3 (1.8-7.7); PLATELET COUNT 758 X10'3 (140-440); RED BLOOD COUNT 3.11 X10'6 (4.70-6.10); RED CELL DISTRIBUTION WIDTH 16.3 % (11.5-14.5); WHITE BLOOD COUNT 13.5 X10'3 (4.5-11.0)
[2023-07-03 06:26] LABS: ALANINE AMINOTRANSFERASE 55 U/L (12-78); ALBUMIN 2.5 G/DL (3.4-5.0); ALBUMIN/GLOBULIN RATIO 0.7 (1.1-1.5); ALKALINE PHOSPHATASE 57 IU/L (46-116); ANION GAP 8 (8-16); ASPARTATE AMINO TRANSFERASE 48 U/L (10-37); BILIRUBIN,TOTAL 0.6 MG/DL (0.1-1.0); BLOOD UREA NITROGEN 16 MG/DL (7-18); BUN/CREATININE RATIO 20.3 (10.0-20.0); CALCIUM 8.5 MG/DL (8.5-10.1); CHLORIDE 103 MMOL/L (99-107); CREATININE 0.79 MG/DL (0.60-1.10); GLUCOSE 97 MG/DL (70-104); SODIUM 135 MMOL/L (135-145); TOTAL PROTEIN 5.9 G/DL (6.4-8.2); eGFR > 90 ML/MIN
[2023-07-03] MEDS: losartan 25mg tablet PO SCH (06:49)
[2023-07-03] MEDS: multivitamins, therapeutics tablet PO SCH (08:00)
[2023-07-03] MEDS: magnesium hydroxide 30ml (MOM) UD suspension PO SCH ×2 (08:00→21:15)
[2023-07-03] MEDS: VANCOMYCIN 1,500MG in normal saline IV soln 300 ML IV SCH ×2 (08:04→21:16)
[2023-07-03] MEDS: aspirin 81mg, enteric-coated 1 TAB TABLET.DR PO SCH (08:05)
[2023-07-03] MEDS: ferrous sulfate 325mg tablet PO SCH ×3 (08:06→16:34)
[2023-07-03] MEDS: HYDROcodone/acetaminophen 10/325mg tab PO PRN ×3 (08:16→21:15)
[2023-07-03 08:56] LABS: ANISOCYTOSIS 1+; PLATELET ESTIMATE INCREASED; TOTAL CELLS COUNTED 100
[2023-07-03 08:57] LABS: BURR CELLS FEW; ELLIPTOCYTES FEW; POLYCHROMASIA 1+
[2023-07-03] MEDS: HYDROmorphone 1 mg/ml syringe IV PRN ×2 (10:09→18:58)
[2023-07-03] MEDS: JUVEN Shake w/Arg/Glut/Ca2+Bmb (Juven 19.3gm) pkt 240ml PO SCH ×2 (12:30→17:40)
--- NOTE | 2023-07-03 15:56 | NUR ---
WOUND VAC EDUCATION PROVIDED BY WOUND CARE 1. Patient instructed to call the Wound Center or their Home Health Agency immediately if: * They notice a change in the color or amount of the fluid in the canister. * Their wound looks more red than usual or has a foul smell. * The skin around their wound looks reddened or irritated. * The dressing feels loose or appears to be loose. * They experience any increase or changes in their pain. * The alarm will not turn off. 2. Patient instructed that they should not be disconnected from suction for more than 2 hours at a time. * If they are not able to get the suction back on, they need to remove the dressing and take all of the foam out of the wound. * Then moisten sterile gauze with normal saline and place on/in the wound. * Change the dressing once a day until arrangements have been made to replace the wound vac dressing. 3. Patient instructed to turn the wound vac machine OFF and call 911 or go to the ED immediately if their canister fills rapidly with blood. 4. If any of these occur while in the hospital tell a nurse immediately. Addendum: 07/03/23 at 1556 by Berenice Grover LVN Amended: Links added.
--- NOTE | 2023-07-03 18:25 | NUR ---
Patient in room ORTHO 4020. I have received report from Erin GOLDMAN and had the opportunity to ask questions and assume patient care.
[2023-07-03] MEDS: enoxaparin 40mg/0.4ml syringe SUBCUT SCH (21:19)
[2023-07-04] MEDS: HYDROmorphone 1 mg/ml syringe IV PRN ×5 (00:06→22:50)
[2023-07-04] MEDS: HYDROcodone/acetaminophen 10/325mg tab PO PRN ×4 (01:54→19:51)
[2023-07-04 06:00] VITALS: BP 122/81; PULSE 76; RESP 18; TEMP 97.9; O2SAT 100
--- NOTE | 2023-07-04 06:50 | NUR ---
Problems reprioritized. Patient report given, questions answered & plan of care reviewed with Kalina Vanegas.
[2023-07-04] MEDS ORDERED: VANCOMYCIN LEVEL IV ONE (07:30)
[2023-07-04 07:40] VITALS: RESP 18
[2023-07-04 07:40] LABS: BASOPHILS # (AUTO) 0.1 X10'3 (0-0.2); MEAN PLATELET VOLUME 6.1 FL (7.4-10.4); MONOCYTES # (AUTO) 1.1 X10'3 (0-0.9); PRE OP HEMATOCRIT 29.5 % (42.0-52.0)
[2023-07-04 07:42] LABS: BASOPHILS % (AUTO) 0.6 % (0-1); EOSINOPHILS # (AUTO) 0.4 X10'3 (0-0.9); EOSINOPHILS % (AUTO) 3.7 % (0-6); LYMPHOCYTES # (AUTO) 1.7 X10'3 (1.1-4.8); LYMPHOCYTES % (AUTO) 14.3 % (21-51); MEAN CORPUSCULAR HGB CONC 34.1 g/dL (33.0-36.5); MEAN CORPUSCULAR VOLUME 90.9 FL (78-98); MONOCYTES % (AUTO) 9.3 % (2-12); NEUTROPHILS # (AUTO) 8.5 X10'3 (1.8-7.7); NEUTROPHILS % (AUTO) 72.1 % (42-75); PRE OP PLATELET COUNT 882 X10'3 (140-440); RED BLOOD COUNT 3.24 X10'6 (4.70-6.10); RED CELL DISTRIBUTION WIDTH 16.2 % (11.5-14.5)
[2023-07-04] MEDS: multivitamins, therapeutics tablet PO SCH (08:00)
[2023-07-04] MEDS: aspirin 81mg, enteric-coated 1 TAB TABLET.DR PO SCH (08:00)
[2023-07-04] MEDS: magnesium hydroxide 30ml (MOM) UD suspension PO SCH ×2 (08:00→18:29)
[2023-07-04] MEDS: losartan 25mg tablet PO SCH (08:00)
[2023-07-04 08:12] LABS: ALANINE AMINOTRANSFERASE 55 U/L (12-78); ALBUMIN 2.8 G/DL (3.4-5.0); ALBUMIN/GLOBULIN RATIO 0.8 (1.1-1.5); ALKALINE PHOSPHATASE 66 IU/L (46-116); ANION GAP 6 (8-16); ASPARTATE AMINO TRANSFERASE 43 U/L (10-37); BILIRUBIN,TOTAL 0.5 MG/DL (0.1-1.0); BLOOD UREA NITROGEN 16 MG/DL (7-18); BUN/CREATININE RATIO 20.5 (10.0-20.0); CALCIUM 8.4 MG/DL (8.5-10.1); CHLORIDE 101 MMOL/L (99-107); CREATININE 0.78 MG/DL (0.60-1.10); GLUCOSE 94 MG/DL (70-104); POTASSIUM 4.1 MMOL/L (3.5-5.1); SODIUM 137 MMOL/L (135-145); TOTAL CARBON DIOXIDE 29.6 MMOL/L (24-32); TOTAL PROTEIN 6.3 G/DL (6.4-8.2); eGFR > 90 ML/MIN
[2023-07-04] MEDS: ferrous sulfate 325mg tablet PO SCH ×3 (08:30→17:35)
[2023-07-04] MEDS: VANCOMYCIN 1,500MG in normal saline IV soln 300 ML IV SCH ×2 (09:28→19:52)
[2023-07-04 10:25] LABS: ANISOCYTOSIS 1+; BURR CELLS FEW; ELLIPTOCYTES FEW; PLATELET ESTIMATE INCREASED; POLYCHROMASIA 1+; TOTAL CELLS COUNTED 100
[2023-07-04 10:26] LABS: SCHISTOCYTES FEW
[2023-07-04] MEDS: JUVEN Shake w/Arg/Glut/Ca2+Bmb (Juven 19.3gm) pkt 240ml PO SCH ×2 (12:30→17:30)
--- NOTE | 2023-07-04 13:30 | NUR ---
Nursing requests assistance in dressing the left lateral fasciotomy wound as the surgeon was in assessing wound. Per surgeon, pt. will not have left lateral fasciotomy surgically closed. The plan is that he will discharge home with NPWT, home health and out-patient wound care. The pt. was provided with out-patient paperwork and given appointment card for scheduled appointment this coming Monday. The pt. was left with the bed in the lowest position, call light in reach and in the care of his primary nurse who was at the bedside. Addendum: 07/05/23 at 0736 by Emma Contreras RN Agree with FLOOR GRINDER documentation
[2023-07-04] MEDS: HYDROmorphone inj. 0.5 MG/0.5 ML DISP.SYRIN IV PRN (17:41)
[2023-07-04 18:00] VITALS: BP 163/77; PULSE 98; RESP 16; TEMP 98.4; O2SAT 99
--- NOTE | 2023-07-04 18:50 | NUR ---
Patient in room ORTHO 4020. I have received report from Kalina Vanegas and had the opportunity to ask questions and assume patient care.
--- NOTE | 2023-07-04 18:53 | NUR ---
Report to Gilma GOLDMAN
[2023-07-04 19:45] VITALS: RESP 18; O2SAT 96
[2023-07-04] MEDS: enoxaparin 40mg/0.4ml syringe SUBCUT SCH (19:56)
[2023-07-04 22:00] VITALS: BP 130/74; PULSE 92; RESP 16; TEMP 97.6; O2SAT 98
[2023-07-05] MEDS: HYDROcodone/acetaminophen 10/325mg tab PO PRN ×4 (00:40→14:59)
[2023-07-05] MEDS: HYDROmorphone 1 mg/ml syringe IV PRN (03:11)
--- NOTE | 2023-07-05 07:00 | NUR ---
Report given to Kalina GOLDMAN
[2023-07-05] MEDS: magnesium hydroxide 30ml (MOM) UD suspension PO SCH (08:00)
[2023-07-05] MEDS: HYDROmorphone inj. 0.5 MG/0.5 ML DISP.SYRIN IV PRN (08:33)
[2023-07-05] MEDS: aspirin 81mg, enteric-coated 1 TAB TABLET.DR PO SCH (08:34)
[2023-07-05] MEDS: multivitamins, therapeutics tablet PO SCH (08:34)
[2023-07-05] MEDS: ferrous sulfate 325mg tablet PO SCH (08:34)
[2023-07-05 08:36] VITALS: BP_SYST 142; PULSE 89
[2023-07-05] MEDS: losartan 25mg tablet PO SCH (08:36)
[2023-07-05] MEDS: VANCOMYCIN 1,500MG in normal saline IV soln 300 ML IV SCH (08:45)
[2023-07-05 08:49] VITALS: RESP 18
[2023-07-05] MEDS ORDERED: sulfamethoxazole/trimethoprim DS (800/160mg) tablet PO SCH (08:50)
[2023-07-05 09:53] LABS: BASOPHILS # (AUTO) 0.1 X10'3 (0-0.2); EOSINOPHILS # (AUTO) 0.5 X10'3 (0-0.9); NEUTROPHILS # (AUTO) 8.3 X10'3 (1.8-7.7)
[2023-07-05 09:54] LABS: EOSINOPHILS % (AUTO) 4.3 % (0-6); HEMATOCRIT 29.6 % (42.0-52.0); LYMPHOCYTES # (AUTO) 1.6 X10'3 (1.1-4.8); MEAN CORPUSCULAR HGB CONC 33.7 g/dL (33.0-36.5); MEAN PLATELET VOLUME 6.3 FL (7.4-10.4); MONOCYTES # (AUTO) 1.2 X10'3 (0-0.9); MONOCYTES % (AUTO) 10.2 % (2-12); NEUTROPHILS % (AUTO) 70.5 % (42-75); PLATELET COUNT 805 X10'3 (140-440); RED BLOOD COUNT 3.22 X10'6 (4.70-6.10); RED CELL DISTRIBUTION WIDTH 16.5 % (11.5-14.5); WHITE BLOOD COUNT 11.8 X10'3 (4.5-11.0)
[2023-07-05 10:04] LABS: ALANINE AMINOTRANSFERASE 50 U/L (12-78); ALBUMIN 2.8 G/DL (3.4-5.0); ALBUMIN/GLOBULIN RATIO 0.8 (1.1-1.5); ALKALINE PHOSPHATASE 66 IU/L (46-116); ANION GAP 5 (8-16); ASPARTATE AMINO TRANSFERASE 39 U/L (10-37); BILIRUBIN,TOTAL 0.5 MG/DL (0.1-1.0); BLOOD UREA NITROGEN 16 MG/DL (7-18); BUN/CREATININE RATIO 19.8 (10.0-20.0); CALCIUM 8.9 MG/DL (8.5-10.1); CHLORIDE 100 MMOL/L (99-107); CREATININE 0.81 MG/DL (0.60-1.10); GLUCOSE 97 MG/DL (70-104); SODIUM 136 MMOL/L (135-145); TOTAL CARBON DIOXIDE 31.4 MMOL/L (24-32); TOTAL PROTEIN 6.3 G/DL (6.4-8.2); eGFR > 90 ML/MIN
--- NOTE | 2023-07-05 12:29 | NUR ---
Reassessment: Per EMR pt POD #1 s/p fasciotomy closure. PO intake fluctuates, down to 0% lunch 07/01 to breakfast 07/02, however PO intake improving with 70% PO intake the following 5 meals. Pt continues receiving a Nuno shake BID and pt with 100% PO intake of ONS since 07/02 with two ONS being non-administered d/t NPO status. Combined recent average in PO intake and ONS meets 100% estimated protein and energy needs. Per documentation specialist pt continues receiving outside food. LBM 07/04 per I&O. No further nutrition intervention implemented at this time. Will continue to follow and make recommendations as appropriate. Recommendations: 1. Continue regular diet; encourage PO intake and allow outside food to optimize PO intake 2. [place] Nuno shake BIDLD to assist with wound healing 3. Routine bowel care 4. Weekly scaled weights Addendum: 07/05/23 at [address] Amended: Links added.
[2023-07-05 14:29] LABS: ANISOCYTOSIS 1+; PLATELET ESTIMATE INCREASED; TOTAL CELLS COUNTED 100
[2023-07-05 14:36] LABS: ELLIPTOCYTES FEW
[2023-07-05 14:37] LABS: POLYCHROMASIA FEW
[2023-07-05] MEDS ORDERED: SULF1TAB45 PO (14:39)
[2023-07-05] MEDS ORDERED: FER325T PO (14:39)
[2023-07-05] MEDS ORDERED: IBUP-1985 PO (15:58)
[2023-07-05] MEDS ORDERED: ACET-1008 PO (15:58)
[2023-07-05] MEDS ORDERED: OMEP10CA5 PO (15:59)
[2023-07-05 16:00] VITALS: RESP 18
== END 2023-07-05 16:45 | disposition home or self-care (01) | DRG 181 ==
LOC: ER 18:13 → ED HOLD 20:11 → CICU 2S 06-22 00:58 → ORTHO 4S 06-24 17:20
PROVIDERS: ADMIT Surgery; ATTEND Surgery
PROC: 0KNT0ZZ Release Left Lower Leg Muscle, Open Approach (ICD-10-PCS; 2023-06-21)
PROC: 0KNT0ZZ Release Left Lower Leg Muscle, Open Approach (ICD-10-PCS; 2023-06-21)
PROC: 0KNT0ZZ Release Left Lower Leg Muscle, Open Approach (ICD-10-PCS; 2023-06-21)
PROC: 0KNT0ZZ Release Left Lower Leg Muscle, Open Approach (ICD-10-PCS; 2023-06-21)
PROC: B42G1ZZ Computerized Tomography (CT Scan) of Left Lower Extremity Arteries using Low Osmolar Contrast (ICD-10-PCS; 2023-06-21)
PROC: BW211ZZ Computerized Tomography (CT Scan) of Abdomen and Pelvis using Low Osmolar Contrast (ICD-10-PCS; 2023-06-21)
PROC: 041L09N Bypass Left Femoral Artery to Posterior Tibial Artery with Autologous Venous Tissue, Open Approach (ICD-10-PCS; principal; 2023-06-21 21:43)
PROC: 30233N1 Transfusion of Nonautologous Red Blood Cells into Peripheral Vein, Percutaneous Approach (ICD-10-PCS; 2023-06-23)
DX: S85.092A Other specified injury of popliteal artery, left leg, initial encounter (principal); N17.0 Acute kidney failure with tubular necrosis; T79.A22A Traumatic compartment syndrome of left lower extremity, initial encounter; D62 Acute posthemorrhagic anemia; E87.1 Hypo-osmolality and hyponatremia; E78.00 Pure hypercholesterolemia, unspecified; I10 Essential (primary) hypertension; G89.29 Other chronic pain; K57.30 Diverticulosis of large intestine without perforation or abscess without bleeding; K21.9 Gastro-esophageal reflux disease without esophagitis; M54.9 Dorsalgia, unspecified; F17.290 Nicotine dependence, other tobacco product, uncomplicated; I73.9 Peripheral vascular disease, unspecified; D72.829 Elevated white blood cell count, unspecified; V89.2XXA Person injured in unspecified motor-vehicle accident, traffic, initial encounter; Y93.89 Activity, other specified; Y92.89 Other specified places as the place of occurrence of the external cause; Y99.8 Other external cause status; Z86.73 Personal history of transient ischemic attack (TIA), and cerebral infarction without residual deficits; Z79.899 Other long term (current) drug therapy; Z83.3 Family history of diabetes mellitus
CPT/HCPCS: 36415; 36430; 70450; 71045; 72125; 73564; 73590; 73701; 73706; 74177; 76000; 80048; 80053; 80202; 81001; 82550; 82570; 82948; 83605; 83735; 84100; 84145; 84300; 85007; 85025; 85027; 85610; 85651; 85730; 86885; 86900; 86901; 86920; 87070; 87081; 93005; 97116; 97161; 97530; 97535; 99285; A4565; A4615; A4618; A4649; A6154; A6196; A6209; A6213; A6222; A6223; A6224; A6243; A6253; A6258; A6446; A6449; A6455; A7000; C1757; C1758; C1768; G0378; J0690; J0744; J1100; J1170; J1644; J1650; J2250; J2274; J2405; J2704; J2710; J3010; J3370; J3490; J7030; J7040; J7120; P9016; Q9967

== ENCOUNTER 2024-03-25 09:32 | Outpatient (CLI) | payer MEDICAID ==
[~2024-03-25 09:32] MED LIST changes: -ASPI-1071 PO; -ATOR20TA66 PO; +BACL10TA PO; -BACL10TA2 PO; +FER325T PO; +IBUP-1985 PO; +OMEP10CA5 PO; -OMEP20CA15 PO; +SULF1TAB45 PO
[2024-03-25 10:12] LABS: BLOOD UREA NITROGEN 25 MG/DL (7-18); CREATININE 0.91 MG/DL (0.60-1.10); eGFR 87 ML/MIN
[2024-03-25] MEDS ORDERED: iohexol 350 MG/ML 50ML vial IV ONE (10:19)
[2024-03-25] MEDS ORDERED: iohexol 350MG/ML 100ml bottle IV ONE (10:19)
== END 2024-03-25 23:59 | disposition home or self-care (01) ==
LOC: RAD 09:32
PROVIDERS: ATTEND Surgery
DX: I73.9 Peripheral vascular disease, unspecified (principal); K76.0 Fatty (change of) liver, not elsewhere classified; K57.30 Diverticulosis of large intestine without perforation or abscess without bleeding; I70.8 Atherosclerosis of other arteries; M85.872 Other specified disorders of bone density and structure, left ankle and foot; Z98.890 Other specified postprocedural states
CPT/HCPCS: 36415; 75635; 82565; 84520; J3490; Q9967